=== PATIENT | female | born 1940 | race Caucasian/White ===

== ENCOUNTER 2023-12-18 13:04 | Inpatient (IN) | payer MEDICARE, OTHER, SELFPAY ==
--- NOTE | ~2023-12-18 | CT_ITS ---
EXAMINATION: CT PELVIS WITHOUT CONTRAST CLINICAL INFORMATION: Status post fall. Left hip pain. COMPARISON: Pelvis and left hip x-rays of 12/18/2023 TECHNIQUE: Helical scanning was performed with submillimeter collimation through the pelvis. Sagittal and coronal multiplanar 2-D reconstructions were obtained. This CT examination was performed using dose optimization techniques as appropriate, variously including the following: *Automated exposure control *Adjustment of mA and/or kV according to patient size (this includes techniques or standardized protocols for targeted exams where dose is matched to indication/reason for exam; i.e. extremities or head) *Use of iterative reconstruction technique DLP: 376 mGy-cm FINDINGS: PELVIS: Urinary bladder is moderately distended. There is no evidence of radiopaque calculi, wall thickening or obvious soft tissue mass. Probable small diverticulum from the right posterior lateral wall of the urinary bladder. Small cystocele is suspected. Small rectocele is suspected. Moderate stool burden in the colon. Visualized bowel loops demonstrate no evidence of wall thickening or peripheral fat stranding. No adnexal mass. Uterus is not seen, likely surgically absent. Recommend correlation with surgical history. No evidence of pathologically enlarged lymph nodes. No significant abdominal wall hernia. OSSEOUS STRUCTURES: There is significant diffuse osteopenia which somewhat limits evaluation. Nondisplaced fracture of the left inferior pubic ramus is noted. Minimal cortical step-off along the superior cortex of the left superior pubic ramus in the vicinity of pubic symphysis is noted. No definite additional acute fractures are noted in the pelvis and visualized bilateral proximal femurs. There is mild to moderate compression of L5 body, indeterminate age, probably chronic. Lower lumbar spondylosis is seen. No definite soft tissue hematoma is seen CT/CT pelvis wo IV con IMPRESSION: 1. Nondisplaced fracture of the left inferior pubic ramus. Minimal cortical step-off along the superior cortex of the left superior pubic ramus in the vicinity of pubic symphysis. No definite additional fractures are noted in the pelvis and visualized bilateral proximal femurs. 2. Mild to moderate compression of L5 body, indeterminate age, probably chronic. 3. Moderate urinary bladder distention. Small cystocele and rectocele are suspected. Recommend clinical correlation.
--- NOTE | ~2023-12-18 | CT_ITS ---
EXAMINATION: CT HEAD WITHOUT CONTRAST CLINICAL INFORMATION: Fall COMPARISON: None TECHNIQUE: Contiguous axial imaging was performed from the skull base to vertex without intravenous administration of contrast. This CT examination was performed using dose optimization techniques as appropriate, variously including the following: *Automated exposure control *Adjustment of mA and/or kV according to patient size (this includes techniques or standardized protocols for targeted exams where dose is matched to indication/reason for exam; i.e. extremities or head) *Use of iterative reconstruction technique DLP: 848 mGy-cm FINDINGS: There is no evidence of acute intracranial hemorrhage or territorial infarction. Chronic white matter small vessel ischemic changes. Cerebral atrophy with commensurate ventricular changes. No abnormal mass effect or midline shift is seen. [place] to white matter differentiation is well preserved. No extra-axial fluid collections are identified. The ventricles are normal in size. There is no abnormal attenuation within the brain parenchyma. The osseous structures and soft tissues are normal. The mastoid air cells and visualized portions of the paranasal sinuses are well aerated. CT/CT cervical spine wo IV con IMPRESSION: 1. No acute intracranial pathology. 2. Chronic white matter small vessel ischemic changes. EXAMINATION: Noncontrast CT scan of the cervical spine. INDICATION: Fall COMPARISON: None. TECHNIQUE: Helical, multidetector axial images were obtained from the occiput to the upper thorax. Coronal and sagittal reformats of the cervical spine were provided for interpretation. DLP: 848 mGy-cm FINDINGS: No acute fractures or dislocations of the cervical spine are seen. Moderate to severe multilevel degenerative changes. Anatomic alignment and positioning of the vertebral bodies and posterior elements is noted. The atlantoaxial joint and craniovertebral articulations are normal without evidence of subluxation. There is no prevertebral soft tissue swelling. The thyroid gland and visualized portions of the lung apices and mediastinum are unremarkable. IMPRESSION: 1. No acute visible fracture or dislocation. 2. Moderate to severe multilevel degenerative changes.
--- NOTE | ~2023-12-18 | CT_ITS ---
EXAMINATION: CT ANGIOGRAM OF THE CHEST WITH AND WITHOUT CONTRAST (CT PULMONARY ANGIOGRAM FOR PE) CLINICAL INFORMATION: Reason for Exam palpitations, syncope, elevated ddimer COMPARISON: None available. TECHNIQUE: Prior to contrast administration, noncontrast localization images were obtained. Subsequently, multidetector volumetric imaging was performed from the thoracic inlet to below the diaphragms following the administration of 65 mL Omnipaque 350 intravenous contrast. No contrast reaction reported Sagittal, coronal, and MIP oblique sagittal reformatted images were obtained on the CT workstation, uploaded to PACS, and reviewed. This CT examination was performed using dose optimization techniques as appropriate, variously including the following: *Automated exposure control *Adjustment of mA and/or kV according to patient size (this includes techniques or standardized protocols for targeted exams where dose is matched to indication/reason for exam; i.e. extremities or head) *Use of iterative reconstruction technique Total exam dose-length product 220 mGy-cm FINDINGS: QUALITY OF STUDY/CONTRAST BOLUS: Satisfactory. PULMONARY ARTERIES: No pulmonary emboli. THORACIC AORTA: No aneurysm. LUNG: Streaky bibasilar opacities favor atelectasis. PLEURA: No pleural effusion or pneumothorax. MEDIASTINUM: Thyroid gland appears diffusely prominent. There are subcentimeter mediastinal lymph nodes within the range of normal variation. Cardiac size is within normal limits; no pericardial effusion. CORONARY ARTERY CALCIFICATION: No significant calcification is identified. CHEST WALL/AXILLA: No axillary or internal mammary lymphadenopathy. OSSEOUS STRUCTURES: Degenerative changes are noted in the spine. UPPER ABDOMEN: There is a 3 mm calculus in the upper right kidney. No reflux of contrast into the hepatic veins to suggest elevated right heart pressures. CT/CT angio chest PE protocol IMPRESSION: 1. No pulmonary embolus identified. 2. Streaky bibasilar opacities favor atelectasis. 3. Right renal calculus measuring 3 mm. VTE: negative.
--- NOTE | ~2023-12-18 | XR_ITS ---
EXAMINATION: XR HIP, LEFT CLINICAL INFORMATION: Status post fall. Left hip pain. COMPARISON: None available. TECHNIQUE: AP view of the pelvis as well as AP and frog-lateral views of the left hip. FINDINGS: Femoral heads are well-seated in their respective acetabula. Hip joint spaces are preserved. Minimal cortical step-off is noted along the superior cortex of the left superior pubic ramus in the vicinity of the pubic symphysis, possibility of a small nondisplaced fracture here cannot be excluded. Otherwise there is no evidence of acute fracture or dislocation in the pelvis and left hip. Lower cervical spondylosis. Osteopenia of the spine. Compression deformity of the L5 body is suspected on the AP view. Small calcification in the left pelvis probably representing a phlebolith. No suspicious lytic or blastic osseous lesions are seen. XR/XR hip LT w PEL1V IMPRESSION: Minimal cortical step-off and along the superior cortex of the left superior pubic ramus in the vicinity of the pubic symphysis is nonspecific, possibility of small fracture here cannot be excluded. Otherwise there is no evidence of acute fracture or dislocation in the pelvis and left hip. Compression deformity of L5 body is suspected. Lower lumbar spondylosis.
[2023-12-18 13:11] VITALS: BP 158/75; BP 180/82; PULSE 70; PULSE 71; RESP 18; TEMP 36.3; O2SAT 97; O2SAT 99; BMI 29.4
--- NOTE | 2023-12-18 13:44 | ECG_ITS ---
Test Reason : FALL Blood Pressure : / mmHG Vent. Rate : 072 BPM Atrial Rate : 072 BPM P-R Int : 176 ms QRS Dur : 090 ms QT Int : 378 ms P-R-T Axes : 069 -02 023 degrees QTc Int : 413 ms Normal sinus rhythm cannot exclude old inferior infarct, but could be normal variant Abnormal ECG No previous ECGs available Referred By: Jessica Byrne Electronically Signed By:MITCH SALCIDO
--- NOTE | 2023-12-18 14:14 | ED.FALL ---
HPI - Fall General Chief Complaint: Fall Stated Complaint: FELL DOWN 2 STEPS Time Seen by Provider: 12/18/23 13:27 Source: patient Mode of arrival: EMS History of Present Illness HPI Narrative: 83-year-old female states that she fell down 2 stairs, struck the back of her head and complains of proximal medial thigh pain. She denies any loss of consciousness and is not on blood thinners. Related Data Allergies Allergy/AdvReac Type Severity Reaction Status Date / Time Unable to Assess Allergy Verified 12/18/23 13:44 Review of Systems Review of Systems: Pertinent positives and negatives as stated in the [facility] Past Medical History Source: nursing notes reviewed Social History Social History Advance Directives: Yes Advance Directives Information Provided: No Advance Directives on File: No Physical Exam Vital Signs: Vital Signs: Last Vital Signs Temp 97.3 F 12/18/23 13:11 Pulse 71 12/18/23 13:11 Resp 18 12/18/23 13:11 BP 158/75 H 12/18/23 13:11 Pulse Ox 97 12/18/23 13:11 O2 Del Method Room Air 12/18/23 13:11 BMI result Body Mass Index 29.4 VITAL SIGNS: Reviewed. GENERAL: Well developed, well nourished, in no acute distress. HEAD: Normocephalic/small 1 cm contusion noted to occiput EYES: PERRLA, EOMI EARS: Ext canals without abnormality NOSE: Nares patent bilateral OROPHARYNX: no oral lesions noted, posterior pharynx clear NECK: C-collar in place without midline cervical spine tenderness to palpation or step-offs noted LUNGS: Normal breath sounds. No adventitious sounds or accessory muscle use. SpO2<97>; CHEST WALL: There are no deformities or crepitus or tenderness to palpation CARDIOVASCULAR: Regular rate and rhythm without noted murmurs ABDOMEN: Soft, non-tender, non-distended with bowel sounds. PELVIS: Stable, tenderness noted at the medial aspect of the proximal left thigh MUSCULOSKELETAL: No tenderness, deformities, or effusions noted on gross inspection. EXTREMITIES: No cyanosis, clubbing or edema. SKIN: Inspection of the skin reveals no rashes NEUROLOGIC: Alert and oriented x 4. Strength and sensation to light touch were grossly intact x 4. Medical Decision Making Medical Decision Making [facility] Narrative: 1344: 83-year-old female with history and clinical presentation mechanical fall, suspect that patient may have a left hip fracture or possible rami fracture and will evaluate for any head/cervical spine pathology. I reviewed all investigations and hematologic indices demonstrate a leukocytosis with left shift but no anemia or thrombocytopenia. Chemistry indices negative for JEROME or electrolyte/liver enzyme derangements. CT of the head negative for intracranial bleeding or mass effect and cervical spine negative for fracture or subluxation. Left hip x-ray demonstrates cortical disruption of the left superior pubic rami otherwise, no fracture or dislocation. I suspect that there may be a subtle fracture to the left femoral neck and will proceed with CT pelvis to better characterize. Leukocytosis may be not infectious stress reaction but will pursue Rice catheter placement with urine specimen. C-collar was cleared. Signed out to DR Boggs - f/u CT pelvis and UA Differential Diagnosis Differential Diagnoses: The differential diagnosis associated with the presentation includes Please see the discussion above Admission/Observation Consideration of admission/observation: Escalation of care including admission/observation considered Please see the discussion above Lab Data [facility] Lab Attestation statement: I reviewed the patient's lab results. Please see the discussion above 12/18/23 14:41 12/18/23 14:41 Labs: Lab Results 12/18/23 Range/Units 14:41 WBC 16.0 H (4.8-10.8) X10*3/uL RBC 3.95 L (4.20-5.50) X10*6/uL Hgb 12.3 (12.0-16.0) g/dl Hct 36.9 L (37.0-47.0) % MCV 93.4 (80.0-98.0) fL MCH 31.1 (27.0-33.0) pg MCHC 33.3 (31.0-35.0) g/dl RDW 12.0 (11.0-16.0) % Plt Count 213 (160-400) X10*3/uL MPV 9.5 (9.4-12.3) fL Immature Gran % (Auto) 0.5 H (0.0-0.4) % Neut % (Auto) 88.2 H (45-73) % Lymph % (Auto) 5.6 L (20-40) % [place] % (Auto) 5.2 (2-11) % Eos % (Auto) 0.2 (0-4) % Baso % (Auto) 0.3 (0-2) % Lymph # (Auto) 0.9 L (1.2-4.9) X10*3/uL [place] # (Auto) 0.8 (0.1-1.2) X10*3/uL Eos # (Auto) 0.0 (0.0-0.4) X10*3/uL Baso # (Auto) 0.1 (0.0-0.2) X10*3/uL Abs Immat Gran (auto) 0.08 H (0.00-0.03) X10*3/uL Absolute Neuts (auto) 14.1 H (2.0-8.3) x10*3/uL Absolute Nucleated RBC 0.000 (0.0-0.012) X10*3/uL Nucleated RBC % (auto) 0.0 (0.0-0.2) /100WBC Sodium 141 (135-145) mmol/L Potassium 4.1 (3.3-5.1) mmol/L Chloride 107 (96-108) mmol/L Carbon Dioxide 24 (22-29) mmol/L Anion Gap 14 (12-20) BUN 18 H (9-16) mg/dL Creatinine 0.94 (0.5-1.4) mg/dL Estim Creat Clear Calc 42.4 Estimated GFR 57 Random Glucose 100 (60-115) mg/dL Calcium 9.3 (8.4-10.2) mg/dL Total Bilirubin 0.4 (0.0-1.0) mg/dL AST 26 (5-31) U/L ALT 20 (0-31) U/L Alkaline Phosphatase 60 (39-117) U/L Total Protein 7.2 (6.5-8.0) g/dL Albumin 3.8 (3.5-5.0) g/dL Independent Interpretation I performed an independent interpretation of an: EKG Interpretation: Normal sinus rhythm, HR-72, no STEMI, OK/QRS/QTC is within normal limits. Radiology Impression Discussion of test interpretation with radiology: I have reviewed the radiologist's reading. Radiologist Impression: Please see the discussion above Critical Care Time Critical Care Time Critical Care Time: Yes Total Critical Care Time: 45 Attestation: I personally attest to this time spent taking care of the patient. Discharge Plan Discharge Clinical Impression: Fall Patient Disposition: Still a Patient
[2023-12-18 14:45] LABS: MANUAL DIFF FLAG NO
[2023-12-18 14:53] LABS: Basophils Absolute Auto 0.1 X10*3/uL (0.0-0.2); Basophils Percent Auto 0.3 % (0-2); Eosinophils Percent Auto 0.2 % (0-4); Hematocrit 36.9 % (37.0-47.0); Hemoglobin 12.3 g/dl (12.0-16.0); Imm Gran Abs Auto 0.08 X10*3/uL (0.00-0.03); Imm Gran Pct Auto 0.5 % (0.0-0.4); Lymphocytes Absolute Auto 0.9 X10*3/uL (1.2-4.9); Lymphocytes Percent Auto 5.6 % (20-40); Mean Corpuscular HGB Conc 33.3 g/dl (31.0-35.0); Mean Corpuscular Hemoglobin 31.1 pg (27.0-33.0); Mean Corpuscular Volume 93.4 fL (80.0-98.0); Mean Platelet Volume 9.5 fL (9.4-12.3); Monocytes Absolute Auto 0.8 X10*3/uL (0.1-1.2); Monocytes Percent Auto 5.2 % (2-11); Neutrophils Absolute Auto 14.1 x10*3/uL (2.0-8.3); Neutrophils Percent Auto 88.2 % (45-73); Platelet Count 213 X10*3/uL (160-400); Red Blood Count 3.95 X10*6/uL (4.20-5.50)
[2023-12-18 14:59] LABS: Alanine Aminotransferase 20 U/L (0-31); Albumin Level 3.8 g/dL (3.5-5.0); Alkaline Phosphatase 60 U/L (39-117); Anion Gap 14 (12-20); Aspartate Amino Transferase 26 U/L (5-31); Bilirubin Total 0.4 mg/dL (0.0-1.0); Blood Urea Nitrogen 18 mg/dL (9-16); Calcium 9.3 mg/dL (8.4-10.2); Carbon Dioxide 24 mmol/L (22-29); Chloride 107 mmol/L (96-108); Creatinine Clr Calc Pharmacy 42.4; Estimated Glomerular Filt Rate 57; Glucose Random 100 mg/dL (60-115); Potassium 4.1 mmol/L (3.3-5.1); Sodium 141 mmol/L (135-145); Total Protein 7.2 g/dL (6.5-8.0)
[2023-12-18 18:49] VITALS: BP 121/79; PULSE 90; PULSE 92; RESP 16; O2SAT 95
[2023-12-18 19:48] LABS: Appearance Urine Clear; Color Urine Yellow; Glucose Urine UA Negative (Negative); Leukocyte Esterase Urine Negative (Negative); Nitrite Urine Negative (Negative); PH 7.5 (5.0-9.0); Urine Blood Negative (Negative); Urine Ketones Trace mg/dL (Negative); Urine Protein Negative (Neg-Trace)
[2023-12-18 19:53] LABS: INTERNATIONAL NORM RATIO 1.1 (0.9-1.1); Prothrombin Time 12.9 SEC (11.1-13.3)
[2023-12-18 19:55] LABS: Partial Thromboplastin Time 29.9 SEC (26.0-36.8)
[2023-12-18 20:05] LABS: Troponin-I High Sensitivity 5.8 ng/L (<3.5-17.0)
--- NOTE | 2023-12-18 20:20 | P.HPHOSP_ITS ---
History of Present Illness Date of Service: 12/18/23 <SAW Bryant - Last Filed: 12/18/23 21:00> Attending physician on admission: Bartolome Miguel <SAW Bryant - Last Filed: 12/18/23 21:00> Chief Complaint: syncope/collapse <SAW Bryant - Last Filed: 12/18/23 21:00> 83-year-old female with history of hypothyroidism who lives at home by herself independent at baseline presented to the ED via EMS due to an unwitnessed syncopal episode. She states that she was going up the stairs and experienced a ?blackout? falling backwards. She is unsure if she lost consciousness but does not feel she hit her head. She was unable to get up and was experiencing significant pain in the left hip area. Denies history of similar episodes. Does tell me she has been experiencing intermittent palpitations and non radiating left sided chest discomfort for several months. Episodes lasting about 5 minutes at rest. No chest pressure, sob, stern, lightheadedness. She has also has urinary urgency x 2 months but no dysuria, hematuria, abd pain, n/v, flank pain. No fevers, chills, sore throat, cough. Has chronic sinus pressure/PND. No recent sick contacts. has been feeling fatigued x several days. On arrival, VSS. Leukocytosis 16.0. Renal function and electrolyte levels normal. Initial troponin 5.8. Urinalysis unremarkable. Head CT negative for any acute intracranial abnormality. Cervical spine CT negative for any acute osseous abnormality but shows degenerative changes. CT of the left pelvis shows nondisplaced fracture of the left inferior pubic ramus with minimal cortical step-off along the superior cortex of the left superior pubic ramus in the vicinity of the pubic symphysis as well as [id number] compression of the L5 body of indeterminate age but likely chronic. EKG shows normal sinus rhythm, rate 72, no ST/T-wave abnormality. <SAW Bryant - Last Filed: 12/18/23 21:00> Review of Systems 2 Review of Systems: General: No fevers, malaise, unintentional weight loss HEENT: No blurred vision, diplopia. No sore throat, nasal congestion, rhinorrhea, sinus pain, ear pain Cardiovascular: No chest pain, palpitations, or leg edema Respiratory: No shortness of breath, wheezing, cough GI: No abdominal pain, nausea, vomiting, diarrhea, constipation, melena, hematochezia : +urinary urgency/frequency. No dysuria, hematuria, decreased urinary output MSK: No myalgia, back pain. +left hip pain Neuro: No headaches, paresthesias. +LLE weakness Skin: No rashes or lesions <SAW Bryant - Last Filed: 12/18/23 21:00> [facility] Medical History: Medical History Hypothyroidism <SAW Bryant - Last Filed: 12/18/23 21:00> Social History: Social History Smoked in Last 30 Days: No Use of substances other than those prescribed or required for medical reasons: No Advance Directives: Yes Advance Directives Information Provided: No Advance Directives on File: No <SAW Bryant - Last Filed: 12/18/23 21:00> Meds Allergies/Adverse reactions: Allergies Allergy/AdvReac Type Severity Reaction Status Date / Time clindamycin Allergy Unknown Verified 12/18/23 18:54 levofloxacin Allergy Unknown Verified 12/18/23 18:54 oxybutynin Allergy Unknown Verified 12/18/23 18:54 sulfamethoxazole Allergy Unknown Verified 12/18/23 18:54 <SAW Bryant - Last Filed: 12/18/23 21:00> Home medications: Home Medications Medication Instructions Recorded Confirmed Last Taken Type levothyroxine 75 mcg tablet 75 mcg PO DAILY 12/18/23 12/18/23 Unknown History <SAW Bryant - Last Filed: 12/18/23 21:00> Physical Exam 2 Vital Signs and Narrative: Vital Signs: Last Vital Signs Temp 97.3 F 12/18/23 13:11 Pulse 90 12/18/23 18:49 Resp 16 12/18/23 18:49 BP 121/79 12/18/23 18:49 Pulse Ox 95 12/18/23 18:49 O2 Del Method Room Air 12/18/23 18:49 BMI result Body Mass Index 29.4 <SAW Bryant - Last Filed: 12/18/23 21:00> Constitutional - Awake and Alert, No apparent distress Eyes - PERRLA, EOMI Cardiovascular - S1S2, RRR, No edema Respiratory - Normal lung expansion, Normal respiratory effort, No respiratory distress, CTA bilaterally Gastrointestinal - NT / ND; +BS; No rebound or guarding Extremities - no calf tenderness bilaterally, no swelling Musculoskeletal - Normal inspection, legs are equal in length and lie straight. Guarding of left hip, significant ttp over left pelvis Skin - Warm/Dry Neurological - Alert & oriented x3, CN II-XII in tact, 5/5 strength BUE, RLE> Unable to lift LLE due to pain Psychological - Appropriate affect <SAW Bryant - Last Filed: 12/18/23 21:00> Results Labs CBC and Chem 7: 12/18/23 14:41 12/18/23 14:41 <SAW Bryant - Last Filed: 12/18/23 21:00> Labs: Laboratory Results - last 24 hr 12/18/23 12/18/23 14:41 19:44 MCV 93.4 MCH 31.1 MCHC 33.3 RDW 12.0 Plt Count 213 MPV 9.5 Immature Gran % (Auto) 0.5 H Neut % (Auto) 88.2 H Lymph % (Auto) 5.6 L [place] % (Auto) 5.2 Eos % (Auto) 0.2 Baso % (Auto) 0.3 Lymph # (Auto) 0.9 L [place] # (Auto) 0.8 Eos # (Auto) 0.0 Baso # (Auto) 0.1 Abs Immat Gran (auto) 0.08 H Absolute Neuts (auto) 14.1 H Absolute Nucleated RBC 0.000 Nucleated RBC % (auto) 0.0 PT 12.9 INR 1.1 APTT 29.9 Anion Gap 14 Estim Creat Clear Calc 42.4 Estimated GFR 57 Random Glucose 100 Calcium 9.3 Total Bilirubin 0.4 AST 26 ALT 20 Alkaline Phosphatase 60 Total Protein 7.2 Albumin 3.8 Urine Color Yellow Urine Appearance Clear Urine pH 7.5 Ur Specific [place] 1.010 Urine Protein Negative Urine Glucose (UA) Negative Urine Ketones Trace Urine Blood Negative Urine Nitrite Negative Ur Leukocyte Esterase Negative <SAW Bryant - Last Filed: 12/18/23 21:00> Imaging Radiologist's Impressions: Impressions Cervical Spine CT 12/18/23 14:17 IMPRESSION: 1. No acute intracranial pathology. 2. Chronic white matter small vessel ischemic changes. EXAMINATION: Noncontrast CT scan of the cervical spine. INDICATION: Fall COMPARISON: None. TECHNIQUE: Helical, multidetector axial images were obtained from the occiput to the upper thorax. Coronal and sagittal reformats of the cervical spine were provided for interpretation. DLP: 848 mGy-cm FINDINGS: No acute fractures or dislocations of the cervical spine are seen. Moderate to severe multilevel degenerative changes. Anatomic alignment and positioning of the vertebral bodies and posterior elements is noted. The atlantoaxial joint and craniovertebral articulations are normal without evidence of subluxation. There is no prevertebral soft tissue swelling. The thyroid gland and visualized portions of the lung apices and mediastinum are unremarkable. IMPRESSION: 1. No acute visible fracture or dislocation. 2. Moderate to severe multilevel degenerative changes. Head CT 12/18/23 14:17 IMPRESSION: 1. No acute intracranial pathology. 2. Chronic white matter small vessel ischemic changes. EXAMINATION: Noncontrast CT scan of the cervical spine. INDICATION: Fall COMPARISON: None. TECHNIQUE: Helical, multidetector axial images were obtained from the occiput to the upper thorax. Coronal and sagittal reformats of the cervical spine were provided for interpretation. DLP: 848 mGy-cm FINDINGS: No acute fractures or dislocations of the cervical spine are seen. Moderate to severe multilevel degenerative changes. Anatomic alignment and positioning of the vertebral bodies and posterior elements is noted. The atlantoaxial joint and craniovertebral articulations are normal without evidence of subluxation. There is no prevertebral soft tissue swelling. The thyroid gland and visualized portions of the lung apices and mediastinum are unremarkable. IMPRESSION: 1. No acute visible fracture or dislocation. 2. Moderate to severe multilevel degenerative changes. Hip/Pelvis X-Ray 12/18/23 14:17 IMPRESSION: Minimal cortical step-off and along the superior cortex of the left superior pubic ramus in the vicinity of the pubic symphysis is nonspecific, possibility of small fracture here cannot be excluded. Otherwise there is no evidence of acute fracture or dislocation in the pelvis and left hip. Compression deformity of L5 body is suspected. Lower lumbar spondylosis. Pelvis CT 12/18/23 17:12 IMPRESSION: 1. Nondisplaced fracture of the left inferior pubic ramus. Minimal cortical step-off along the superior cortex of the left superior pubic ramus in the vicinity of pubic symphysis. No definite additional fractures are noted in the pelvis and visualized bilateral proximal femurs. 2. Mild to moderate compression of L5 body, indeterminate age, probably chronic. 3. Moderate urinary bladder distention. Small cystocele and rectocele are suspected. Recommend clinical correlation. <SAW Bryant - Last Filed: 12/18/23 21:00> Assessment and Plan (1) Fracture of inferior pubic ramus: Status: Acute <SAW Bryant - Last Filed: 12/18/23 21:00> (2) Syncope: Status: Acute <SAW Bryant - Last Filed: 12/18/23 21:00> (3) Fall: Status: Acute <SAW Bryant - Last Filed: 12/18/23 21:00> 83-year-old female with history of hypothyroidism admitted for syncope and left pubic ramus fracture #Syncope and collapse- suspect cardiac in etiology -has been experiencing palpitations and chest discomfort intermittently xseveral months -EKG without evidence of dysrrhythmia or ischemia -Head CT without acute intracranial abnormality -no source of infection evident, though COVID/flu swabs pending -intitial trop 5, repeat pending -ddimer pending, tsh pending -echo -monitor on telemetry #Fall with L pubic rami fracture -ortho consult -pain management prn -pt eval #hypothryoidism -synthroid dvt prophylaxis- heparin full code pt requires inpt stay at least 2 midnights due to syncope and collapse of unclear etiology requiring close cardiac monitoring, further investigation, as well as probable placement to STR due to pubic rami fracture <SAW Bryant - Last Filed: 12/18/23 21:00> 83-year-old female with history of hypothyroidism admitted for syncope and left pubic ramus fracture #Syncope and collapse- suspect cardiac in etiology -has been experiencing palpitations and chest discomfort intermittently xseveral months -EKG without evidence of dysrrhythmia or ischemia -Head CT without acute intracranial abnormality -no source of infection evident, though COVID/flu swabs pending -intitial trop 5, repeat pending -ddimer pending, tsh pending -echo, cardiology consult -monitor on telemetry #Fall with L pubic rami fracture -ortho consult -pain management prn -pt eval #hypothryoidism -synthroid dvt prophylaxis- heparin full code pt requires inpt stay at least 2 midnights due to syncope and collapse of unclear etiology requiring close cardiac monitoring, further investigation, as well as probable placement to STR due to pubic rami fracture <Bartolome Miguel MD - Last Filed: 12/18/23 21:13> Quality Stroke Does the patient have a stroke diagnosis?: No <SAW Bryant - Last Filed: 12/18/23 21:00> VTE Prior VTE?: No <SAW Bryant - Last Filed: 12/18/23 21:00> VTE Risk Level:: Medical - moderate - high <SAW Bryant - Last Filed: 12/18/23 21:00> VTE Device Contraindication: Treatment Not Indicated <SAW Bryant - Last Filed: 12/18/23 21:00> VTE Drug Contraindication: N/A - Med Ordered <SAW Bryant - Last Filed: 12/18/23 21:00>
[2023-12-18 21:33] LABS: TSH reflex Free T4 0.73 uIU/mL (0.32-4.0)
[2023-12-18 21:37] LABS: D Dimer High Sensitivity 14465 NG/ML
--- NOTE | 2023-12-18 21:38 | PC.NURSE ---
this rn attempted to medicated pt with subcut heparin. pt refused medication. this rn documented according to mar
[2023-12-18] MEDS: iohexoL 350 MG/ML 100 ML INFUS..BTL IV (22:49)
[2023-12-18] MEDS: 0.9 % Sodium Chloride Flush 3 ML SYRINGE IVFLUSH (22:52)
[2023-12-18] MEDS: 0.9 % Sodium Chloride 500 ML IV (22:52)
[2023-12-18 22:56] VITALS: BP 140/71; PULSE 72; RESP 14; TEMP 37.4; O2SAT 95
[2023-12-18 23:23] LABS: IDNOW Serial# 16C4AD1C
[2023-12-18 23:24] LABS: COVID-19 Test Negative (Negative); IDNOW Serial# 55D5AD1C; Influenza A Negative (Negative); Influenza B2 Negative (Negative)
[2023-12-19] VITALS (10 sets, daily range): BP systolic 112–146; BP diastolic 56–74; PULSE 67–95; RESP 18–21; TEMP 36.2–37.3; O2SAT 93–98; BMI 28.3
[2023-12-19] MEDS: Morphine Sulfate 2 MG/ML CARTRIDGE IVPUSH (01:19)
[2023-12-19 05:07] LABS: MANUAL DIFF FLAG NO
[2023-12-19 05:08] LABS: Basophils Percent Auto 0.4 % (0-2); Eosinophils Absolute Auto 0.1 X10*3/uL (0.0-0.4); Eosinophils Percent Auto 0.7 % (0-4); Hematocrit 35.3 % (37.0-47.0); Hemoglobin 11.8 g/dl (12.0-16.0); Imm Gran Abs Auto 0.03 X10*3/uL (0.00-0.03); Imm Gran Pct Auto 0.3 % (0.0-0.4); Lymphocytes Absolute Auto 1.8 X10*3/uL (1.2-4.9); Lymphocytes Percent Auto 15.7 % (20-40); Mean Corpuscular HGB Conc 33.4 g/dl (31.0-35.0); Mean Corpuscular Volume 92.7 fL (80.0-98.0); Mean Platelet Volume 9.8 fL (9.4-12.3); Monocytes Percent Auto 8.5 % (2-11); Neutrophils Absolute Auto 8.4 x10*3/uL (2.0-8.3); Neutrophils Percent Auto 74.4 % (45-73); Platelet Count 192 X10*3/uL (160-400); Red Blood Count 3.81 X10*6/uL (4.20-5.50); Red Cell Distribution Width 12.3 % (11.0-16.0); White Blood Count 11.3 X10*3/uL (4.8-10.8)
[2023-12-19 05:21] LABS: Anion Gap 14 (12-20); Blood Urea Nitrogen 13 mg/dL (9-16); Calcium 8.8 mg/dL (8.4-10.2); Carbon Dioxide 21 mmol/L (22-29); Chloride 105 mmol/L (96-108); Creatinine Clr Calc Pharmacy 40.3; Estimated Glomerular Filt Rate 53; Glucose Random 125 mg/dL (60-115); Potassium 3.4 mmol/L (3.3-5.1); Sodium 137 mmol/L (135-145)
--- NOTE | 2023-12-19 05:25 | PC.NURSE ---
this rn assisted pt with repositioning upper body pt declined boost in bed.states this is too painful has been boosting self
--- NOTE | 2023-12-19 07:00 | CA_ITS ---
Transthoracic Echocardiogram Patient (Last, First, Middle): Flower Montoya C Gender: Female Date of : 1940 Age: 83 Procedure Date: 12/19/2023 Procedure Type: Transthoracic Echocardiogram Location: [facility] [place] Height: 157.48 cm Weight: 74.84 kg BSA: 1.76 m2 Heart Rate: 67 bpm BP: 134 / 72 mmHg Data Report Analyst: SB Referring MD: Erika SPRING Symptoms: syncope Study Quality: Adequate ECG Rhythm: Sinus Conclusions: - The left ventricular systolic function is normal. The calculated ejection fraction is 62% by biplane method. - No obvious valvular pathology seen on this study. Findings Procedure Information Contrast agent, definity, is being given per protocol without apparent complications. Left Ventricle Normal left ventricular cavity size. There is normal left ventricular wall thickness. The left ventricular systolic function is normal. The calculated ejection fraction is 62% by biplane method. There is no evidence of regional wall motion abnormalities. Diastolic function is normal for age. Right Ventricle Normal right ventricular cavity size and systolic function. Atria Both atria are normal in size. Aortic Valve There is a normal trileaflet aortic valve. There is mild calcification of the aortic valve. There is no aortic valve stenosis. There is no aortic valve regurgitation. Mitral Valve The mitral valve appears normal. There is no mitral valve regurgitation. There is no mitral valve stenosis. Pulmonic Valve The pulmonic valve is likely normal. Tricuspid Valve Normal tricuspid valve structure. There is mild tricuspid valve regurgitation. There is no evidence of pulmonary hypertension. Great Vessels The asc aorta is normal in size. Venous The inferior vena cava is normal in size and collapses greater than 50% with inspiration. Pericardium/Pleural There is no evidence of pericardial effusion. Prior Study Comparison No prior study available for comparison. Recommendations, Care & Conclusions No obvious valvular pathology seen on this study. Measurements 2D Linear Measurements IVSd: 0.96 0.6-0.9/0.6-1.0 cm LVIDd: 4.54 3.9-5.3/4.2-5.9 cm LVIDd Index: 2.58 2.4-3.2/2.2-3.1 cm/m2 LVIDs: 2.90 2.0-3.6 cm LVPWd: 0.67 0.7-1.1 cm LA Diam: 3.30 2.7-3.8/3.0-4.0 cm LAIDs Index: 1.88 1.5-2.3 cm/m2 LV Mass: 146.72 67-162/88-224 g LV Mass Index: 83.37 43-95/49-115 g/m2 LVOT Diam: 2.00 3.0+(-)1.3 cm 2D Systolic Function EF 4C: 58.80 >55% EF 2C: 66.90 >55% EF BiP: 61.90 >55% Mitral Valve MV Pk E: 0.86 MV PK A: 0.99 MV Decel Time: 173.00 E/A: 0.90 E'Lateral: 6.85 E'Medial: 5.98 E/E' Med: 14.40 E/E' Lat: 12.60 PHT: 51.00 MVA PHT: 4.31 Decel Baxter: 4.99 Aortic Valve AoV Pk Casey: 1.54 AoV Mn Casey: 1.08 AoV VTI: 0.31 AoV Pk Grad: 9.00 Aov Mn Grad: 5.00 TADEO Cont.VTI: 1.99 LVOT LVOT Pk Casey: 0.98 LVOT Mn Casey: 0.68 LVOT VTI: 0.20 LVOT Pk Grad: 4.00 LVOT Mn Grad: 2.00 LVOT Diam: 2.00 LVOT Area: 3.14 Diastolic Function MV Pk E: 0.86 MV Pk A: 0.99 E/A: 0.90 E'Medial: 5.98 E/E' Med: 14.40 E' Laterial: 6.85 E/E' Lat: 12.60 Right Ventricle TAPSE (mm): 22.80 TVS' Casey: 12.30 Tricuspid Valve TR Pk Casey: 2.80 TR Pk Grad: 31.00 RA Press: 3.00 RVSP: 34.00 Great Vessels Aorta Sinus of Valsalva: 2.70 2.0-3.5 cm Ao Asc: 3.50 2.1-3.4 cm Pulmonary Valve PV Pk Casey: 0.92 Peak PV Grad: 3.00 Updated in Other Vendor System with Status of Final Srinivas Presley MD electronically signed on 12/19/2023 12:48:13 PM with status of Final
[2023-12-19] MEDS: Levothyroxine Sodium 75 MCG TABLET PO (09:08)
[2023-12-19] MEDS: Acetaminophen 325 MG TABLET 650 MG PO ×2 (09:08→15:03)
[2023-12-19] MEDS: 0.9 % Sodium Chloride Flush 3 ML SYRINGE IVFLUSH ×3 (09:08→21:10)
[2023-12-19] MEDS: Heparin Sodium,Porcine 5,000 UNIT/ML VIAL 5000 UNIT SUBCUT ×2 (09:10→21:10)
--- NOTE | 2023-12-19 09:39 | PHA.MEDREC ---
Pharmacy Consult ? Medication Reconciliation Pharmacy has completed the medication reconciliation.Confirmed medications with patient.
--- NOTE | 2023-12-19 09:53 | P.CONCA_ITS ---
History of Present Illness History of Present Illness Date of Service: 12/19/23 Chief complaint: syncope,pelvis fracture Narrative: This is a cardiology consultation regarding question of syncope. Patient states that she was walking down stairs to go to the kitchen and in that context, she thinks she may have missed a couple of steps but not clear. She felt as though she was blacking out and then fell down. Again she can not describe exactly how she fell, in which direction extra. She was then admitted for further evaluation. Patient denies any chest pain. She states she has had palpitations off and on for a long time but not really clear as to what that is. However denies any history of coronary disease or myocardial infarction or cardiomyopathy. Review of Systems 2 Review of Systems: Yes all other systems are reviewed and are negative Constitutional: Constitutional: Reports as per HPI and Reports no additional constitutional complaints Eyes: Eyes: Reports as per HPI and Denies no additional eye complaints ENT: Denies system reviewed and no additional complaints, except as documented and Reports as per HPI Cardiovascular: Cardiovascular: Reports as per HPI, Reports no additional cardiovascular complaints, Denies acrocyanosis, Denies cool extremities, Denies chest pain, Denies leg edema, Reports lightheadedness, Reports palpitations and Denies dyspnea Respiratory: Respiratory: Reports as per HPI, Denies no additional respiratory complaints and Denies dyspnea Gastrointestinal: Gastrointestinal: Reports as per HPI and Denies no additional gastrointestinal complaints Genitourinary: Genitourinary: Reports as per HPI Musculoskeletal: Musculoskeletal: Reports no additional musculoskeletal complaints and Reports as per HPI Integumentary/Breasts: Skin/Breast: Reports system reviewed and no additional complaints, except as docu Neurologic: Reports system reviewed and no additional complaints, except as documented and Reports as per HPI Psychiatric: Psychiatric: Reports no additional psychiatric complaints and Reports as per HPI Endocrine: Endocrine: Reports no additional endocrine complaints, Reports as per HPI and Reports palpitations Hematologic/Lymphatic: Hematologic/Lymphatic: Reports no additional hematologic/lymphatic complaints and Reports as per HPI Allergic/Immunologic: Allergic/Immunologic: Reports no additional allergic/immunologic complaints and Reports as per HPI PMF Past Medical History Medical History Hypothyroidism Family History Family History Unknown No problems noted. Pertinent family history: Patient denies any major cardiovascular issues in the family. Social History Social History Household Members: Unknown / Unable to assess Housing: House Do you presently have visiting nurse or other home services: No Patient Tobacco Use Status: Never used Tobacco Advance Directives Date on File: 12/19/23 Meds Allergies Allergy/AdvReac Type Severity Reaction Status Date / Time clindamycin Allergy Unknown Verified 12/18/23 18:54 levofloxacin Allergy Unknown Verified 12/18/23 18:54 oxybutynin Allergy Unknown Verified 12/18/23 18:54 sulfamethoxazole Allergy Unknown Verified 12/18/23 18:54 Active Medications: Current Medications Acetaminophen (Acetaminophen 325 Mg Tablet) 650 mg PO Q6H PRN PRN Reason: Pain, Mild (Pain Scale 1-3) Last Admin: 12/19/23 09:08 Dose: 650 mg Heparin Sodium (Porcine) (Heparin Sodium,Porcine 5,000 Unit/Ml Vial) 5,000 unit SUBCUT Q12H [facility] Last Admin: 12/19/23 09:10 Dose: 5,000 unit Levothyroxine Sodium (Levothyroxine Sodium 75 Mcg Tablet) 75 mcg PO DAILY [facility] Last Admin: 12/19/23 09:08 Dose: 75 mcg Morphine Sulfate (Morphine Sulfate 2 Mg/Ml Cartridge) 2 mg IVPUSH Q4H PRN; Protocol PRN Reason: Pain, Severe (Pain Scale 7-10) Last Admin: 12/19/23 01:19 Dose: 2 mg Ondansetron HCl (Ondansetron Hcl 4 Mg/2 Ml Vial) 4 mg IVPUSH Q8H PRN PRN Reason: Nausea and Vomiting Oxycodone HCl (Oxycodone Hcl Immed Release 5 Mg Tablet) 5 mg PO Q6H PRN PRN Reason: Pain, Moderate(Pain Scale 4-6) Senna (Sennosides 8.6 Mg Tablet) 17.2 mg PO BEDTIME PRN PRN Reason: Constipation Sodium Chloride (0.9 % Sodium Chloride Flush 3 Ml Syringe) 3 ml IVFLUSH QSHIFT [facility] Last Admin: 12/19/23 09:08 Dose: 3 ml Home Medications Medication Instructions Recorded Confirmed Last Taken Type levothyroxine 75 mcg tablet 75 mcg PO DAILY@0600 12/18/23 12/19/23 12/18/23 History cholecalciferol (vitamin D3) 50 50 mcg PO DAILY 12/19/23 12/19/23 12/18/23 History mcg (2,000 unit) tablet (Vitamin D3) fexofenadine 180 mg tablet 180 mg PO DAILY 12/19/23 12/19/23 12/18/23 History fluticasone propionate 50 1 spray intranasal DAILY 12/19/23 12/19/23 12/18/23 History mcg/actuation nasal spray,suspension Physical Exam 2 Vital Signs: Vital Signs: Last Vital Signs Temp 98.2 F 12/19/23 08:54 Pulse 77 12/19/23 08:54 Resp 20 12/19/23 08:54 BP 141/66 H 12/19/23 08:54 Pulse Ox 95 12/19/23 08:54 O2 Del Method Room Air 12/19/23 08:54 BMI result Body Mass Index 28.3 Const: General: comfortable and no acute distress O rientation/consciousness: patient oriented x3 HEENT: Other: Unremarkable Head: Yes normal to inspection Neck: Neck: Yes normal visual inspection Chest: Chest palpation & inspection: normal inspection of the chest Resp: Auscultation: clear to auscultation bilaterally Cardio: Palpation: normal PMI Heart sounds: S1 normal heart sound present, S2 normal heart sound present, no gallops, Murmur heart sound present systolic I/ and at the right sternal border and no rubs GI: Palpation (GI): Soft to palpation Back/Spine/Pelvis: Other: unremarkable Skin: General skin exam: no rashes or lesions noted Neuro: General: patient oriented x3 Extrem: General: Yes normal to inspection Psych: Mental Status: mental status grossly normal Objective Labs and Meds 12/19/23 04:29 12/19/23 04:29 Lab results: Laboratory Results - last 24 hr 12/18/23 12/18/23 12/18/23 14:41 19:44 20:54 WBC 16.0 H RBC 3.95 L Hgb 12.3 Hct 36.9 L MCV 93.4 MCH 31.1 MCHC 33.3 RDW 12.0 Plt Count 213 MPV 9.5 Immature Gran % (Auto) 0.5 H Neut % (Auto) 88.2 H Lymph % (Auto) 5.6 L [place] % (Auto) 5.2 Eos % (Auto) 0.2 Baso % (Auto) 0.3 Lymph # (Auto) 0.9 L [place] # (Auto) 0.8 Eos # (Auto) 0.0 Baso # (Auto) 0.1 Abs Immat Gran (auto) 0.08 H Absolute Neuts (auto) 14.1 H Absolute Nucleated RBC 0.000 Nucleated RBC % (auto) 0.0 PT 12.9 INR 1.1 APTT 29.9 D-Dimer High Sensitivty 90965 Sodium 141 Potassium 4.1 Chloride 107 Carbon Dioxide 24 Anion Gap 14 BUN 18 H Creatinine 0.94 Estim Creat Clear Calc 42.4 Estimated GFR 57 Random Glucose 100 Calcium 9.3 Total Bilirubin 0.4 AST 26 ALT 20 Alkaline Phosphatase 60 Troponin I High Sens 5.8 6.0 Total Protein 7.2 Albumin 3.8 TSH 0.73 Urine Color Yellow Urine Appearance Clear Urine pH 7.5 Ur Specific [place] 1.010 Urine Protein Negative Urine Glucose (UA) Negative Urine Ketones Trace Urine Blood Negative Urine Nitrite Negative Ur Leukocyte Esterase Negative COVID-19 ([facility]) COVID-19 Clin Com Influenza Type A (MELISSA) Influenza Type B (MELISSA) Influenza A & B Note 12/18/23 12/19/23 23:00 04:29 WBC 11.3 H RBC 3.81 L Hgb 11.8 L Hct 35.3 L MCV 92.7 MCH 31.0 MCHC 33.4 RDW 12.3 Plt Count 192 MPV 9.8 Immature Gran % (Auto) 0.3 Neut % (Auto) 74.4 H Lymph % (Auto) 15.7 L [place] % (Auto) 8.5 Eos % (Auto) 0.7 Baso % (Auto) 0.4 Lymph # (Auto) 1.8 [place] # (Auto) 1.0 Eos # (Auto) 0.1 Baso # (Auto) 0.0 Abs Immat Gran (auto) 0.03 Absolute Neuts (auto) 8.4 H Absolute Nucleated RBC 0.000 Nucleated RBC % (auto) 0.0 PT INR APTT D-Dimer High Sensitivty Sodium 137 Potassium 3.4 Chloride 105 Carbon Dioxide 21 L Anion Gap 14 BUN 13 Creatinine 0.99 Estim Creat Clear Calc 40.3 Estimated GFR 53 Random Glucose 125 H Calcium 8.8 Total Bilirubin AST ALT Alkaline Phosphatase Troponin I High Sens Total Protein Albumin TSH Urine Color Urine Appearance Urine pH Ur Specific [place] Urine Protein Urine Glucose (UA) Urine Ketones Urine Blood Urine Nitrite Ur Leukocyte Esterase COVID-19 ([facility]ARILYS) Negative COVID-19 Clin Com See Note Influenza Type A (MELISSA) Negative Influenza Type B (MELISSA) Negative Influenza A & B Note See Note ECG Interpretation: EKG with sinus rhythm at 72/Min; can not exclude old inferior infarct but could be from body habitus; normal LA and corrected QT. Imaging Radiologist's impression: Impressions Cervical Spine CT 12/18/23 14:17 IMPRESSION: 1. No acute intracranial pathology. 2. Chronic white matter small vessel ischemic changes. EXAMINATION: Noncontrast CT scan of the cervical spine. INDICATION: Fall COMPARISON: None. TECHNIQUE: Helical, multidetector axial images were obtained from the occiput to the upper thorax. Coronal and sagittal reformats of the cervical spine were provided for interpretation. DLP: 848 mGy-cm FINDINGS: No acute fractures or dislocations of the cervical spine are seen. Moderate to severe multilevel degenerative changes. Anatomic alignment and positioning of the vertebral bodies and posterior elements is noted. The atlantoaxial joint and craniovertebral articulations are normal without evidence of subluxation. There is no prevertebral soft tissue swelling. The thyroid gland and visualized portions of the lung apices and mediastinum are unremarkable. IMPRESSION: 1. No acute visible fracture or dislocation. 2. Moderate to severe multilevel degenerative changes. Head CT 12/18/23 14:17 IMPRESSION: 1. No acute intracranial pathology. 2. Chronic white matter small vessel ischemic changes. EXAMINATION: Noncontrast CT scan of the cervical spine. INDICATION: Fall COMPARISON: None. TECHNIQUE: Helical, multidetector axial images were obtained from the occiput to the upper thorax. Coronal and sagittal reformats of the cervical spine were provided for interpretation. DLP: 848 mGy-cm FINDINGS: No acute fractures or dislocations of the cervical spine are seen. Moderate to severe multilevel degenerative changes. Anatomic alignment and positioning of the vertebral bodies and posterior elements is noted. The atlantoaxial joint and craniovertebral articulations are normal without evidence of subluxation. There is no prevertebral soft tissue swelling. The thyroid gland and visualized portions of the lung apices and mediastinum are unremarkable. IMPRESSION: 1. No acute visible fracture or dislocation. 2. Moderate to severe multilevel degenerative changes. Hip/Pelvis X-Ray 12/18/23 14:17 IMPRESSION: Minimal cortical step-off and along the superior cortex of the left superior pubic ramus in the vicinity of the pubic symphysis is nonspecific, possibility of small fracture here cannot be excluded. Otherwise there is no evidence of acute fracture or dislocation in the pelvis and left hip. Compression deformity of L5 body is suspected. Lower lumbar spondylosis. Pelvis CT 12/18/23 17:12 IMPRESSION: 1. Nondisplaced fracture of the left inferior pubic ramus. Minimal cortical step-off along the superior cortex of the left superior pubic ramus in the vicinity of pubic symphysis. No definite additional fractures are noted in the pelvis and visualized bilateral proximal femurs. 2. Mild to moderate compression of L5 body, indeterminate age, probably chronic. 3. Moderate urinary bladder distention. Small cystocele and rectocele are suspected. Recommend clinical correlation. Chest CTA 12/18/23 22:51 IMPRESSION: 1. No pulmonary embolus identified. 2. Streaky bibasilar opacities favor atelectasis. 3. Right renal calculus measuring 3 mm. VTE: negative. Assessment and Plan (1) Syncope: Qualifiers: Syncope type: unspecified Qualified Code(s): R55 - Syncope and collapse Status: Acute (2) Fall: Qualifiers: Encounter type: initial encounter Qualified Code(s): W19.XXXA - Unspecified fall, initial encounter Status: Acute Plan High sensitivity troponins within range. EKG shows sinus rhythm. We can monitor on telemetry for now and check for any Nehemias arrhythmias or heart blocks. Echocardiogram can be performed for cardiac function assessment and for any significant aortic stenosis. She is just being put on telemetry. Will follow-up with you. Procedures Date of Service Date of Service: 12/19/23
--- NOTE | 2023-12-19 10:18 | P.CONOP_ITS ---
History of Present Illness HPI Consult date: 12/19/23 Chief complaint: syncope,pelvis fracture Narrative: 3-year-old female with history of hypothyroidism who lives at home by herself independent at baseline presented to the ED via EMS due to an unwitnessed syncopal episode. She states that she was going up the stairs and experienced a ?blackout? falling backwards. She is unsure if she lost consciousness but does not feel she hit her head. She was unable to get up and was experiencing significant pain in the left hip area. A CT of the pelvis as well as X-rays of the left hip and pelvis were obtained in the ED which revealed left superior and inferior pubic rami fractures. The patient was admitted to the medical service for further workout of the syncopal episode with orthopeidc consult in regards to the pelvic fractures. Review of Systems 2 Review of Systems: Yes all other systems are reviewed and are negative [facility] Past Medical History Medical History Hypothyroidism Family History Family History (Updated 12/19/23 @ 09:55 by Srinivas Presley MD) Unknown No problems noted. Social History Social History Household Members: Unknown / Unable to assess Housing: House Do you presently have visiting nurse or other home services: No Patient Tobacco Use Status: Never used Tobacco Advance Directives Date on File: 12/19/23 Meds Allergies Allergy/AdvReac Type Severity Reaction Status Date / Time clindamycin Allergy Unknown Verified 12/18/23 18:54 levofloxacin Allergy Unknown Verified 12/18/23 18:54 oxybutynin Allergy Unknown Verified 12/18/23 18:54 sulfamethoxazole Allergy Unknown Verified 12/18/23 18:54 Active Medications: Current Medications Acetaminophen (Acetaminophen 325 Mg Tablet) 650 mg PO Q6H PRN PRN Reason: Pain, Mild (Pain Scale 1-3) Last Admin: 12/19/23 09:08 Dose: 650 mg Heparin Sodium (Porcine) (Heparin Sodium,Porcine 5,000 Unit/Ml Vial) 5,000 unit SUBCUT Q12H AL Last Admin: 12/19/23 09:10 Dose: 5,000 unit Levothyroxine Sodium (Levothyroxine Sodium 75 Mcg Tablet) 75 mcg PO DAILY AL Last Admin: 12/19/23 09:08 Dose: 75 mcg Morphine Sulfate (Morphine Sulfate 2 Mg/Ml Cartridge) 2 mg IVPUSH Q4H PRN; Protocol PRN Reason: Pain, Severe (Pain Scale 7-10) Last Admin: 12/19/23 01:19 Dose: 2 mg Ondansetron HCl (Ondansetron Hcl 4 Mg/2 Ml Vial) 4 mg IVPUSH Q8H PRN PRN Reason: Nausea and Vomiting Oxycodone HCl (Oxycodone Hcl Immed Release 5 Mg Tablet) 5 mg PO Q6H PRN PRN Reason: Pain, Moderate(Pain Scale 4-6) Senna (Sennosides 8.6 Mg Tablet) 17.2 mg PO BEDTIME PRN PRN Reason: Constipation Sodium Chloride (0.9 % Sodium Chloride Flush 3 Ml Syringe) 3 ml [facility]USH [facility] Last Admin: 12/19/23 09:08 Dose: 3 ml Home Medications Medication Instructions Recorded Confirmed Last Taken Type levothyroxine 75 mcg tablet 75 mcg PO DAILY@0600 12/18/23 12/19/23 12/18/23 History cholecalciferol (vitamin D3) 50 50 mcg PO DAILY 12/19/23 12/19/23 12/18/23 History mcg (2,000 unit) tablet (Vitamin D3) fexofenadine 180 mg tablet 180 mg PO DAILY 12/19/23 12/19/23 12/18/23 History fluticasone propionate 50 1 spray intranasal DAILY 12/19/23 12/19/23 12/18/23 History mcg/actuation nasal spray,suspension Physical Exam 2 Vital Signs: Vital Signs: Last Vital Signs Temp 98.2 F 12/19/23 08:54 Pulse 77 12/19/23 08:54 Resp 20 12/19/23 08:54 BP 141/66 H 12/19/23 08:54 Pulse Ox 95 12/19/23 08:54 O2 Del Method Room Air 12/19/23 08:54 BMI result Body Mass Index 28.3 Const: General: cooperative, healthy appearing and no acute distress Resp: Effort & Inspection: normal respiratory effort and able to speak in complete sentences Cardio: Rate: regular rate Peripheral pulses: Peripheral pulses 2+ throughout GI: Palpation (GI): Soft to palpation Skin: Lesions: no lesions Rashes: no rashes Extrem: Other: left lower extremity is normal to inspection. Mild pain with him flexion and extension. No pain with log roll. Sensation is intact. Pedal pulse intact. Results Labs 12/19/23 04:29 12/19/23 04:29 Labs: Abnormal lab results 12/18/23 12/19/23 Range/Units 14:41 04:29 WBC 16.0 H 11.3 H (4.8-10.8) X10*3/uL RBC 3.95 L 3.81 L (4.20-5.50) X10*6/uL Hgb 11.8 L (12.0-16.0) g/dl Hct 36.9 L 35.3 L (37.0-47.0) % Immature Gran % (Auto) 0.5 H (0.0-0.4) % Neut % (Auto) 88.2 H 74.4 H (45-73) % Lymph % (Auto) 5.6 L 15.7 L (20-40) % Lymph # (Auto) 0.9 L (1.2-4.9) X10*3/uL Abs Immat Gran (auto) 0.08 H (0.00-0.03) X10*3/uL Absolute Neuts (auto) 14.1 H 8.4 H (2.0-8.3) x10*3/uL Carbon Dioxide 21 L (22-29) mmol/L BUN 18 H (9-16) mg/dL Random Glucose 125 H (60-115) mg/dL H & H 12/18/23 12/19/23 Range/Units 14:41 04:29 Hgb 12.3 11.8 L (12.0-16.0) g/dl Hct 36.9 L 35.3 L (37.0-47.0) % Coagulation 12/18/23 Range/Units 19:44 INR 1.1 (0.9-1.1) All other labs normal. Assessment and Plan (1) Fracture of inferior pubic ramus: Qualifiers: Encounter type: initial encounter Fracture type: closed Laterality: l eft Qualified Code(s): S32.592A - Other specified fracture of left pubis, initial encounter for closed fracture Status: Acute X-rays and CT scan reviewed with reveal left superior and inferior pubic rami fractures Protective WB LLE - TTWB with walker No surgical intervention needed at this time May f/u outpatient for further management No additional orthopedic intervention is needed at this time. (2) Fracture of superior pubic ramus: Qualifiers: Encounter type: initial encounter Fracture type: closed Laterality: l eft Qualified Code(s): S32.512A - Fracture of superior rim of left pubis, initial encounter for closed fracture Status: Acute Procedures Date of Service Date of Service: 12/19/23
--- NOTE | 2023-12-19 11:08 | MHC.CM.PN ---
IMM 12/19/23, EMR REVIEWED, PT ADMITTED W/SYNCOPE AND PELVIS FX'S, CM MET W/PT WHO REPORTS SHE LIVES ALONE, IS FULLY INDEPENDENT, DENIES USE OF DME/HOME SERVICES, PT REPORTS SHE SPOKE W/HER DTR HUBER WHO WOULD PREFER PT TO GO TO [facility], REFERRAL PLACED AND OT/PT PENDING. PT VERIFIES PCP ON FILE IS CORRECT, COVID VACC & BOOSTED AND PT REPORTS HER DTR HUBER IS HER HCP AND COPY REQUESTED FROM [facility], WHO WILL BE FAXING HCP TO CM OFFICE.
--- NOTE | 2023-12-19 12:09 | HO.PM.IMPN ---
Subjective Subjective Date of Service: 12/20/23 Review of Systems Follow up fall, LOC , pubic rami fx pain with movement Physical Exam Vital Signs: Vital Signs: Last Vital Signs Temp 98.2 F 12/19/23 11:43 Pulse 70 12/19/23 11:43 Resp 20 12/19/23 11:43 BP 112/58 L 12/19/23 11:43 Pulse Ox 96 12/19/23 11:43 O2 Del Method Room Air 12/19/23 11:43 BMI result Body Mass Index 28.3 Appearing in no acute distress lung sounds are clear to auscultation heart regular rate rhythm, clear S1, S2 positive bowel sounds, abdomen is soft, nontender neuro patient is alert x3, no focal deficits Objective Data Active Medications Acetaminophen (Acetaminophen 325 Mg Tablet) 650 mg PO Q6H PRN PRN Reason: Pain, Mild (Pain Scale 1-3) Last Admin: 12/19/23 09:08 Dose: 650 mg Documented By: VICKY Heparin Sodium (Porcine) (Heparin Sodium,Porcine 5,000 Unit/Ml Vial) 5,000 unit SUBCUT Q12H [facility] Last Admin: 12/19/23 09:10 Dose: 5,000 unit Documented By: VICKY Levothyroxine Sodium (Levothyroxine Sodium 75 Mcg Tablet) 75 mcg PO DAILY [facility] Last Admin: 12/19/23 09:08 Dose: 75 mcg Documented By: VICKY Morphine Sulfate (Morphine Sulfate 2 Mg/Ml Cartridge) 2 mg IVPUSH Q4H PRN; Protocol PRN Reason: Pain, Severe (Pain Scale 7-10) Last Admin: 12/19/23 01:19 Dose: 2 mg Documented By: ZARA Ondansetron HCl (Ondansetron Hcl 4 Mg/2 Ml Vial) 4 mg IVPUSH Q8H PRN PRN Reason: Nausea and Vomiting Oxycodone HCl (Oxycodone Hcl Immed Release 5 Mg Tablet) 5 mg PO Q6H PRN PRN Reason: Pain, Moderate(Pain Scale 4-6) Senna (Sennosides 8.6 Mg Tablet) 17.2 mg PO BEDTIME PRN PRN Reason: Constipation Sodium Chloride (0.9 % Sodium Chloride Flush 3 Ml Syringe) [facility] Last Admin: 12/19/23 09:08 Dose: 3 ml Documented By: VICKY Labs 12/19/23 04:29 12/19/23 04:29 Labs: Laboratory Results - last 24 hr 12/18/23 12/18/23 12/18/23 14:41 19:44 23:00 MCV 93.4 MCH 31.1 MCHC 33.3 RDW 12.0 Plt Count 213 MPV 9.5 Immature Gran % (Auto) 0.5 H Neut % (Auto) 88.2 H Lymph % (Auto) 5.6 L [place] % (Auto) 5.2 Eos % (Auto) 0.2 Baso % (Auto) 0.3 Lymph # (Auto) 0.9 L [place] # (Auto) 0.8 Eos # (Auto) 0.0 Baso # (Auto) 0.1 Abs Immat Gran (auto) 0.08 H Absolute Neuts (auto) 14.1 H Absolute Nucleated RBC 0.000 Nucleated RBC % (auto) 0.0 PT 12.9 INR 1.1 APTT 29.9 D-Dimer High Sensitivty 33762 Anion Gap 14 Estim Creat Clear Calc 42.4 Estimated GFR 57 Random Glucose 100 Calcium 9.3 Total Bilirubin 0.4 AST 26 ALT 20 Alkaline Phosphatase 60 Total Protein 7.2 Albumin 3.8 TSH 0.73 Urine Color Yellow Urine Appearance Clear Urine pH 7.5 Ur Specific [place] 1.010 Urine Protein Negative Urine Glucose (UA) Negative Urine Ketones Trace Urine Blood Negative Urine Nitrite Negative Ur Leukocyte Esterase Negative COVID-19 (AMARILYS) Negative COVID-19 Clin Com See Note Influenza Type A (MELISSA) Negative Influenza Type B (MELISSA) Negative Influenza A & B Note See Note 12/19/23 04:29 MCV 92.7 MCH 31.0 MCHC 33.4 RDW 12.3 Plt Count 192 MPV 9.8 Immature Gran % (Auto) 0.3 Neut % (Auto) 74.4 H Lymph % (Auto) 15.7 L [place] % (Auto) 8.5 Eos % (Auto) 0.7 Baso % (Auto) 0.4 Lymph # (Auto) 1.8 [place] # (Auto) 1.0 Eos # (Auto) 0.1 Baso # (Auto) 0.0 Abs Immat Gran (auto) 0.03 Absolute Neuts (auto) 8.4 H Absolute Nucleated RBC 0.000 Nucleated RBC % (auto) 0.0 PT INR APTT D-Dimer High Sensitivty Anion Gap 14 Estim Creat Clear Calc 40.3 Estimated GFR 53 Random Glucose 125 H Calcium 8.8 Total Bilirubin AST ALT Alkaline Phosphatase Total Protein Albumin TSH Urine Color Urine Appearance Urine pH Ur Specific [place] Urine Protein Urine Glucose (UA) Urine Ketones Urine Blood Urine Nitrite Ur Leukocyte Esterase COVID-19 ([facility]ARILYS) COVID-19 Clin Com Influenza Type A (MELISSA) Influenza Type B (MELISSA) Influenza A & B Note Assessment and Plan (1) Fracture of superior pubic ramus: Status: Acute Plan 83-year-old female with history of hypothyroidism admitted for syncope and left pubic ramus fracture Syncope and collapse EKG without evidence of dysrrhythmia or ischemia Head CT without acute intracranial abnormality no source of infection evident Echo normal monitor on telemetry, so far no arrythmia seen by cardiology>plan for o/p holter Neurology consult pending Fall with L pubic rami fracture ortho consult> non surgical, WBAT pain management prn PT rec acute rehab hypothryoidism synthroid dvt prophylaxis- heparin Attending Dr. Soni full code DISPO plan for dc to rehab after complete workup for syncope continue hospital stay for syncope and collapse of unclear etiology requiring close cardiac monitoring, further investigation, as well as probable placement to STR due to pubic rami fracture Quality Stroke Does the patient have a stroke diagnosis?: No VTE Prior VTE?: No VTE Risk Level:: Medical - moderate - high VTE Device Contraindication: Treatment Not Indicated VTE Drug Contraindication: N/A - Med Ordered
[2023-12-20 04:00] VITALS: BP 124/70; PULSE 83; RESP 20; TEMP 37.1; O2SAT 96
[2023-12-20 07:58] VITALS: BP 112/68; PULSE 95; RESP 20; TEMP 36.3; O2SAT 93
[2023-12-20] MEDS: Heparin Sodium,Porcine 5,000 UNIT/ML VIAL 5000 UNIT SUBCUT ×2 (08:00→21:17)
[2023-12-20] MEDS: 0.9 % Sodium Chloride Flush 3 ML SYRINGE IVFLUSH ×2 (08:00→16:14)
[2023-12-20] MEDS: Levothyroxine Sodium 75 MCG TABLET PO (08:01)
[2023-12-20] MEDS: Morphine Sulfate 2 MG/ML CARTRIDGE IVPUSH (08:01)
--- NOTE | 2023-12-20 09:35 | PM.PNCARD ---
Subjective Subjective Date of Service: 12/20/23 Interval history: She states she feels fine. No further episodes of feeling dizzy or syncopal. No palpitations or any other cardiac symptoms. Review of Systems Review of Systems Yes all other systems are reviewed and are negative Constitutional: Reports as per HPI and Reports no additional constitutional complaints Eyes: Reports as per HPI and Denies no additional eye complaints Denies system reviewed and no additional complaints, except as documented and Reports as per HPI Cardiovascular: Reports as per HPI, Reports no additional cardiovascular complaints, Denies acrocyanosis, Denies cool extremities, Denies chest pain, Denies leg edema, Denies lightheadedness, Denies palpitations and Denies dyspnea Respiratory: Reports as per HPI, Denies no additional respiratory complaints and Denies dyspnea Gastrointestinal: Reports as per HPI and Denies no additional gastrointestinal complaints Genitourinary: Reports as per HPI Musculoskeletal: Reports no additional musculoskeletal complaints and Reports as per HPI Skin/Breast: Reports system reviewed and no additional complaints, except as docu Reports system reviewed and no additional complaints, except as documented and Reports as per HPI Psychiatric: Reports no additional psychiatric complaints and Reports as per HPI Endocrine: Reports no additional endocrine complaints, Reports as per HPI and Denies palpitations Hematologic/Lymphatic: Reports no additional hematologic/lymphatic complaints and Reports as per HPI Allergic/Immunologic: Reports no additional allergic/immunologic complaints and Reports as per HPI Physical Exam Vital Signs: Last Vital Signs Temp 97.3 F 12/20/23 07:58 Pulse 95 12/20/23 07:58 Resp 20 12/20/23 07:58 BP 112/68 12/20/23 07:58 Pulse Ox 93 12/20/23 07:58 O2 Del Method Room Air 12/20/23 07:58 BMI result Body Mass Index 28.3 Const General: comfortable and no acute distress Orientation/consciousness: patient oriented x3 HEENT Other: Unremarkable Head: Yes normal to inspection Neck Neck: Yes normal visual inspection Chest Chest palpation & inspection: normal inspection of the chest Resp Auscultation: clear to auscultation bilaterally Cardio Palpation: normal PMI Heart sounds: S1 normal heart sound present, S2 normal heart sound present, no gallops, no murmurs and no rubs GI Palpation (GI): Soft to palpation Back/Spine/Pelvis Other: unremarkable Skin General skin exam: no rashes or lesions noted Neuro General: patient oriented x3 Extrem General: Yes normal to inspection Psych Mental Status: mental status grossly normal Objective Labs and Meds 12/19/23 04:29 12/19/23 04:29 Progress Note: A&P Assessment and plan (1) Syncope: Status: Acute (2) Fall: Status: Acute Plan High sensitivity troponins within range. EKG shows sinus rhythm. Telemetry without any evidence of significant bradycardia or high-grade heart block. Echocardiogram with LVEF of 60%. No wall motion abnormalities and otherwise unremarkable. Overall, no clear evidence for her fall. Not clear if it is even syncopal or from losing balance. We will arrange a 30 day monitor as an outpatient. Discussed with Connie Braun. Time Spent With Patient Time: Total time managing care of this patient today ____ minutes. Progress Note: Quality Stroke Does the patient have a stroke diagnosis?: No Procedures Date of Service Date of Service: 12/20/23
[2023-12-20 11:31] VITALS: BP 127/63; PULSE 74; RESP 20; TEMP 36.6; O2SAT 95
[2023-12-20 11:36] VITALS: BP 127/63; PULSE 74; O2SAT 95
[2023-12-20 15:08] VITALS: BP 108/62; PULSE 77; RESP 20; TEMP 37; O2SAT 95
--- NOTE | 2023-12-20 17:33 | P.CNNE_ITS ---
History of Present Illness Data of Consult Service Date: 12/20/23 Primary Care Provider: Jose Ramon Robert MD HPI This is a 83-year-old female with history of hypothyroidism who lives at home, independent at baseline presented to the ED after an unwitnessed syncopal episode. She states that she was going up the stairs and experienced a ?blackout? falling backwards. She is unsure if she lost consciousness but does not feel she hit her head. She was unable to get up and was experiencing significant pain in the left hip area. Denies history of similar episodes. She has been experiencing intermittent palpitations and non radiating left sided chest discomfort for several months lasting about 5 minutes at rest. No chest pressure, sob, no lightheadedness. She has also has urinary urgency x 2 months but no dysuria, hematuria, abd pain, n/v, flank pain. No fevers, chills, sore throat, cough. Has chronic sinus pressure/PND. She has been feeling fatigued x several days. Initial troponin 5.8. Urinalysis unremarkable. Head CT negative for any acute intracranial abnormality. Cervical spine CT negative for any acute osseous abnormality but shows degenerative changes. CT of the left pelvis shows nondisplaced fracture of the left inferior pubic ramus with minimal cortical step-off along the superior cortex of the left superior pubic ramus in the vicinity of the pubic symphysis as well as [id number] compression of the L5 body of indeterminate age but likely chronic. EKG shows normal sinus rhythm, rate 72, no ST/T-wave abnormality. Review of Systems 2 Review of Systems: Follow up fall, LOC , pubic rami fx pain with movement Yes all other systems are reviewed and are negative Constitutional: Constitutional: Reports as per HPI and Reports no additional constitutional complaints Eyes: Eyes: Reports as per HPI and Denies no additional eye complaints ENT: Denies system reviewed and no additional complaints, except as documented and Reports as per HPI Cardiovascular: Cardiovascular: Reports as per HPI, Reports no additional cardiovascular complaints, Denies acrocyanosis, Denies cool extremities, Denies chest pain, Denies leg edema, Denies lightheadedness, Denies palpitations and Denies dyspnea Respiratory: Respiratory: Reports as per HPI, Denies no additional respiratory complaints and Denies dyspnea Gastrointestinal: Gastrointestinal: Reports as per HPI and Denies no additional gastrointestinal complaints Musculoskeletal: Musculoskeletal: Reports no additional musculoskeletal complaints and Reports as per HPI Integumentary/Breasts: Skin/Breast: Reports system reviewed and no additional complaints, except as docu Neurologic: Reports system reviewed and no additional complaints, except as documented and Reports as per HPI Psychiatric: Psychiatric: Reports no additional psychiatric complaints and Reports as per HPI Endocrine: Endocrine: Reports no additional endocrine complaints, Reports as per HPI and Denies palpitations Hematologic/Lymphatic: Hematologic/Lymphatic: Reports no additional hematologic/lymphatic complaints and Reports as per HPI Allergic/Immunologic: Allergic/Immunologic: Reports no additional allergic/immunologic complaints and Reports as per HPI [facility] Past Medical History Medical History Hypothyroidism Family History Family History (Updated 12/19/23 @ 09:55 by Srinivas Presley MD) Unknown No problems noted. Pertinent family history: Patient denies any major cardiovascular issues in the family. Social History Social History Household Members: Unknown / Unable to assess Housing: House Do you presently have visiting nurse or other home services: No Patient Tobacco Use Status: Never used Tobacco Advance Directives Date on File: 12/19/23 service: No Meds Allergies Allergy/AdvReac Type Severity Reaction Status Date / Time clindamycin Allergy Unknown Verified 12/18/23 18:54 levofloxacin Allergy Unknown Verified 12/18/23 18:54 oxybutynin Allergy Unknown Verified 12/18/23 18:54 sulfamethoxazole Allergy Unknown Verified 12/18/23 18:54 Active Medications: Current Medications Acetaminophen (Acetaminophen 325 Mg Tablet) 650 mg PO Q6H PRN PRN Reason: Pain, Mild (Pain Scale 1-3) Last Admin: 12/19/23 15:03 Dose: 650 mg Heparin Sodium (Porcine) (Heparin Sodium,Porcine 5,000 Unit/Ml Vial) 5,000 unit SUBCUT Q12H AL Last Admin: 12/20/23 08:00 Dose: 5,000 unit Levothyroxine Sodium (Levothyroxine Sodium 75 Mcg Tablet) 75 mcg PO DAILY AL Last Admin: 12/20/23 08:01 Dose: 75 mcg Morphine Sulfate (Morphine Sulfate 2 Mg/Ml Cartridge) 2 mg IVPUSH Q4H PRN; Protocol PRN Reason: Pain, Severe (Pain Scale 7-10) Last Admin: 12/20/23 08:01 Dose: 2 mg Ondansetron HCl (Ondansetron Hcl 4 Mg/2 Ml Vial) 4 mg IVPUSH Q8H PRN PRN Reason: Nausea and Vomiting Oxycodone HCl (Oxycodone Hcl Immed Release 5 Mg Tablet) 5 mg PO Q6H PRN PRN Reason: Pain, Moderate(Pain Scale 4-6) Senna (Sennosides 8.6 Mg Tablet) 17.2 mg PO BEDTIME PRN PRN Reason: Constipation Sodium Chloride (0.9 % Sodium Chloride Flush 3 Ml Syringe) [facility] Last Admin: 12/20/23 16:14 Dose: 3 ml Home Medications Medication Instructions Recorded Confirmed Last Taken Type levothyroxine 75 mcg tablet 75 mcg PO DAILY@0600 12/18/23 12/19/23 12/18/23 History cholecalciferol (vitamin D3) 50 50 mcg PO DAILY 12/19/23 12/19/23 12/18/23 History mcg (2,000 unit) tablet (Vitamin D3) fexofenadine 180 mg tablet 180 mg PO DAILY 12/19/23 12/19/23 12/18/23 History fluticasone propionate 50 1 spray intranasal DAILY 12/19/23 12/19/23 12/18/23 History mcg/actuation nasal spray,suspension Physical Exam 2 Vital Signs: Vital Signs: Last Vital Signs Temp 98.6 F 12/20/23 15:08 Pulse 77 12/20/23 15:08 Resp 20 12/20/23 15:08 BP 108/62 12/20/23 15:08 Pulse Ox 95 12/20/23 15:08 O2 Del Method Room Air 12/20/23 15:08 BMI result Body Mass Index 28.3 Const: General: cooperative, healthy appearing, comfortable and no acute distress Orientation/consciousness: patient oriented x3 HEENT: Other: Unremarkable Head: Yes normal to inspection Neck: Neck: Yes normal visual inspection Chest: Chest palpation & inspection: normal inspection of the chest Resp: Effort & Inspection: normal respiratory effort and able to speak in complete sentences Auscultation: clear to auscultation bilaterally Cardio: Palpation: normal PMI Rate: regular rate Heart sounds: S1 normal heart sound present, S2 normal heart sound present, no gallops, no murmurs and no rubs Peripheral pulses: Peripheral pulses 2+ throughout GI: Palpation (GI): Soft to palpation Back/Spine/Pelvis: Other: unremarkable Skin: General skin exam: no rashes or lesions noted Lesions: no lesions Rashes: no rashes Neuro: Other: Alert and oriented Non focal exam. LE exam limited by pain from Fx. General: patient oriented x3 Extrem: Other: left lower extremity is normal to inspection. Mild pain with him flexion and extension. No pain with log roll. Sensation is intact. Pedal pulse intact. General: Yes normal to inspection Psych: Mental Status: mental status grossly normal Results Labs 12/19/23 04:29 12/19/23 04:29 Assessment and Plan (1) Syncope: Qualifiers: Syncope type: unspecified Qualified Code(s): R55 - Syncope and collapse Status: Acute Possible syncope vs loss of balance with fall. Recom. Cardiac monitoring for 7 days. EEG.Check for orthostatic hypotension CT head negative (2) Fracture of superior pubic ramus: Qualifiers: Encounter type: initial encounter Fracture type: closed Laterality: l eft Qualified Code(s): S32.512A - Fracture of superior rim of left pubis, initial encounter for closed fracture Status: Acute Plan 83-year-old female with history of hypothyroidism admitted for syncope and left pubic ramus fracture Syncope and collapse EKG without evidence of dysrrhythmia or ischemia Head CT without acute intracranial abnormality no source of infection evident Echo normal monitor on telemetry, so far no arrythmia seen by cardiology>plan for o/p holter Neurology consult pending Fall with L pubic rami fracture ortho consult> non surgical, WBAT pain management prn PT rec acute rehab hypothryoidism synthroid dvt prophylaxis- heparin Attending Dr. Soni full code DISPO plan for dc to rehab after complete workup for syncope continue hospital stay for syncope and collapse of unclear etiology requiring close cardiac monitoring, further investigation, as well as probable placement to STR due to pubic rami fracture Procedures Date of Service Date of Service: 12/20/23
[2023-12-20 19:40] VITALS: BP 127/62; PULSE 86; RESP 18; TEMP 36.8; O2SAT 94
[2023-12-21] VITALS: BP 129/72; PULSE 86; RESP 18; TEMP 36.9; O2SAT 95
--- NOTE | 2023-12-21 | EEG_ITS ---
FINDINGS: Waking background activity consists of low-voltage fast frequencies seen diffusely, intermixed with moderate voltage 8 hertz posterior alpha frequency. Recurrent episodes of sharp, transient seen from the left temporal region with phase reversal at T3. There is occasional bilateral spread of this. Photic stimulation produces marked photic driving responses with some sharp and slow discharges from the posterior quadrants. Hyperventilation was omitted. IMPRESSION: This EEG is considered abnormal due to a focus of cerebral irritability in the left mid temporal region and a photoconvulsive response. This suggests seizure focusing the left hemisphere and the tendency for its seizure disorder. Clinical correlation is suggested. MD JD Yi/KERI / [id number]
[2023-12-21 04:00] VITALS: BP 144/85; PULSE 105; RESP 18; TEMP 37.3; O2SAT 94
[2023-12-21 07:19] VITALS: BP 138/68; PULSE 78; RESP 18; TEMP 36.3; O2SAT 95
--- NOTE | 2023-12-21 08:19 | MHC.CM.PN ---
Addendum entered by Ailin Jarquin RN 12/21/23 09:14: PT WILL ALSO HAVE AN EEG, ORDER TO BE PLACED TODAY. Addendum entered by Ailin Jarquin RN 12/21/23 09:11: CM MET W/PT TO DELIVER IMM, IMM DELIVERED HOWEVER PT DECLINED TO SIGN D/T PT NOW NOT WANTING TO GO TO [facility] SHE THINKS THEY WILL PUSH HER TOO HARD AND WANT HER TO DC TOO SOON, PT REQUESTING REFERRAL TO [facility], REFERRAL SENT. Original Note: ANTIC PT WILL BE MEDICALLY CLEARED FOR ACUTE REHAB AT [facility] [place] FOR BLS TRANSPORT
[2023-12-21] MEDS: 0.9 % Sodium Chloride Flush 3 ML SYRINGE IVFLUSH ×2 (09:14→15:50)
[2023-12-21] MEDS: Heparin Sodium,Porcine 5,000 UNIT/ML VIAL 5000 UNIT SUBCUT (09:14)
[2023-12-21 12:00] VITALS: BP 112/69; PULSE 75; RESP 18; TEMP 36.3; O2SAT 95
--- NOTE | 2023-12-21 12:04 | MHC.CM.PN ---
Addendum entered by Ailin Jarquin, RN 12/21/23 13:35: IMM/ SIGNED BY PT AT BEDSIDE, [facility] FOR BLS TRANSPORT AT4:30PM Original Note: CM MET W/PT AND DTR RIZWAN TO DISCUSS PLAN [facility] REPORTED PT DID NOT HAVE A SECONDARY INSURANCE HOWEVER PT REPORTS SHE HAS , CM CONTACTED INSURANCE VERIFICATION AND THEY WERE ABLE TO LOCATE PT'S #, # GIVEN TO [facility] AND THEY ARE REQUESTING A 3:30PM TRANSFER, HOSPITALIST AWARE VIA TIGER.
--- NOTE | 2023-12-21 13:18 | PM.DS ---
DS: Providers Provider Date of Service: 12/21/23 Date of admission: 12/18/23 20:17 Date of discharge: 12/21/23 Primary care physician: Jose Ramon Robert MD Consults: 12/18/23 20:18 Consult to Orthopedics Routine Consulting Provider: [facility] Reason for consultation: L pelvis fracture 12/18/23 21:12 Consult to Cardiology Routine Consulting Provider: [facility] Reason for consultation: syncope Has provider been notified: Yes 12/20/23 07:17 Consult to Neurology Routine Consulting Provider: [facility] Reason for consultation: syncope DS: Diagnosis Discharge Diagnosis (1) Syncope: Status: Acute (2) Fracture of superior pubic ramus: Status: Acute DS: Summary Time Attestation Discharge coordination time: Greater than 30 minutes Quality: Safe Use of Opioids Does Pt have an Active Cancer Diagnosis on the Problem List?: No Quality: Stroke Does the patient have a stroke diagnosis?: No Physical Exam Vital Signs: Vital Signs: Last Vital Signs Temp 97.3 F 12/21/23 12:00 Pulse 75 12/21/23 12:00 Resp 18 12/21/23 12:00 BP 112/69 12/21/23 12:00 Pulse Ox 95 12/21/23 12:00 O2 Del Method Room Air 12/21/23 12:00 BMI result Body Mass Index 28.3 Const: Other: Awake alert oriented x3 no acute distress Resp: Other: Clear to auscultation bilaterally no rales rhonchi or wheezes Cardio: Other: No S4; positive S1-S2; no S3 murmurs rubs or gallops GI: Other: Soft nontender nondistended normoactive bowel sounds Extrem: Other: No edema bilaterally Discharge Plan Discharge Anticipated Discharge Date/Time: 12/21/23 13:17 Patient Disposition: er SNF Discharge Diagnosis: Syncope Fall Pubic rami fracture Referrals: [facility] [Outside] - 1 Day (SHORT TERM REHAB) Jose Ramon Robert MD [Primary Care Provider] - 1 Week Discharge Medications: New oxycodone 5 mg Tablet 5 mg PO Q6H PRN (Reason: Pain, Moderate(Pain Scale 4-6)) Qty: 20 0RF Rx Instructions: Partial Fill upon patient request. Continued levothyroxine 75 mcg tablet 75 mcg PO DAILY@0600 fexofenadine 180 mg Tablet 180 mg PO DAILY fluticasone propionate 50 mcg/actuation [place],Suspension 1 spray INTRANASAL DAILY Rx Instructions: administer into each nostril cholecalciferol (vitamin D3) [Vitamin D3] 50 mcg (2,000 unit) Tablet 50 mcg PO DAILY Discharge Orders: Discharge Order (Routine); Ordered 12/21/23 Ordered By: Myron Enciso Diet: Advance to usual diet Activity on Discharge: As tolerated Stand Alone Forms: Patient Portal Discharge page Care Plan Goals: Protective weight-bearing left lower extremity-TTWB with walker Health Concerns: Syncope Fall Pubic rami fracture Plan of Treatment: Follow-up with primary care provider as needed Take all medications as prescribed Assessment: See discharge summary
[2023-12-21 15:48] VITALS: BP 119/65; PULSE 93; RESP 18; TEMP 36.4; O2SAT 95
--- NOTE | 2023-12-21 17:22 | P.PNNE_ITS ---
Subjective Subjective Date of Service: 12/21/23 Interval History: No complaints Critical Care Time (minutes): 0 Physical Exam 2 Vital Signs: Vital Signs: Last Vital Signs Temp 97.5 F 12/21/23 15:48 Pulse 93 12/21/23 15:48 Resp 18 12/21/23 15:48 BP 119/65 12/21/23 15:48 Pulse Ox 95 12/21/23 15:48 O2 Del Method Room Air 12/21/23 15:48 BMI result Body Mass Index 28.3 Objective Data Labs 12/19/23 04:29 12/19/23 04:29 Progress Note: A&P Assessment and plan (1) Syncope: Status: Acute Assessment and Plan: EEG shows left temporal seizure focus. Would recommend starting Keppra 250mg bid Plan EEG shows left temporal seizure focus. Would recommend starting Keppra 250mg bid Time Spent With Patient Time: Total time managing care of this patient today ____ minutes. Procedures Date of Service Date of Service: 12/21/23 Quality Stroke Does the patient have a stroke diagnosis?: No VTE Prior VTE?: No VTE Risk Level:: Medical - moderate - high VTE Device Contraindication: Treatment Not Indicated VTE Drug Contraindication: N/A - Med Ordered
== END 2023-12-21 17:51 | disposition skilled nursing facility (03) | DRG 536 ==
LOC: HO.ED 19:49 → HO.EDOVER 20:35 → HO.IMC 12-19 07:37
PROVIDERS: Student in an Organized Health Care Education/Training Program; Admitting Provider Physician Assistant; Emergency Provider Internal Medicine; PCP Family Medicine; Visit Provider Hospitalist
DX: S32.512A Fracture of superior rim of left pubis, initial encounter for closed fracture (principal); W19.XXXA Unspecified fall, initial encounter; E03.9 Hypothyroidism, unspecified; R56.9 Unspecified convulsions; Z20.822 Contact with and (suspected) exposure to COVID-19; Z79.890 Hormone replacement therapy; Z79.51 Long term (current) use of inhaled steroids; Z79.899 Other long term (current) drug therapy
CPT/HCPCS: 36415; 70450; 71275; 72125; 72192; 73502; 80048; 80053; 81003; 84443; 84484; 85025; 85379; 85610; 85730; 87502; 87635; 93005; 93306; 95816; 97110; 97116; 97161; 99285; J1644; J2270; Q9957; Q9967

== ENCOUNTER 2023-12-18 20:17 | Outpatient (BNV) | payer MEDICARE, OTHER, SELFPAY | END 2023-12-19 07:00 | PROVIDERS: Admitting Provider Physician Assistant; Emergency Provider Internal Medicine; PCP Family Medicine; Visit Provider Internal Medicine | DX: I35.8 Other nonrheumatic aortic valve disorders (principal); I36.1 Nonrheumatic tricuspid (valve) insufficiency | CPT/HCPCS: 93306 ==

== ENCOUNTER → 2023-12-18 20:17 | Outpatient (BNV) | payer MEDICARE, OTHER, SELFPAY | PROVIDERS: Admitting Provider Physician Assistant; Emergency Provider Internal Medicine; PCP Family Medicine; Visit Provider Internal Medicine | DX: R55 Syncope and collapse (principal); W19.XXXA Unspecified fall, initial encounter; R94.31 Abnormal electrocardiogram [ECG] [EKG] | CPT/HCPCS: 93010; 99223; 99232 ==

== ENCOUNTER → 2023-12-18 20:17 | Outpatient (BNV) | payer MEDICARE, SELFPAY | PROVIDERS: Admitting Provider Physician Assistant; Emergency Provider Internal Medicine; PCP Family Medicine; Visit Provider Psychiatry & Neurology Neurology | DX: R55 Syncope and collapse (principal); S32.512A Fracture of superior rim of left pubis, initial encounter for closed fracture | CPT/HCPCS: 99222; 99231 ==

== ENCOUNTER → 2023-12-18 20:17 | Outpatient (BNV) | payer MEDICARE, OTHER, SELFPAY | PROVIDERS: Admitting Provider Physician Assistant; Emergency Provider Internal Medicine; PCP Family Medicine; Visit Provider Physician Assistant | DX: R55 Syncope and collapse (principal); S32.512A Fracture of superior rim of left pubis, initial encounter for closed fracture | CPT/HCPCS: 99223; 99232; 99239 ==

== ENCOUNTER → 2023-12-18 20:17 | Outpatient (BNV) | payer MEDICARE, OTHER, SELFPAY | PROVIDERS: Admitting Provider Physician Assistant; Emergency Provider Internal Medicine; PCP Family Medicine; Visit Provider Physician Assistant | DX: S32.592A Other specified fracture of left pubis, initial encounter for closed fracture (principal); S32.512A Fracture of superior rim of left pubis, initial encounter for closed fracture | CPT/HCPCS: 99221 ==

== ENCOUNTER 2024-01-06 08:43 | Outpatient (REF) | payer MEDICARE, OTHER, SELFPAY ==
--- NOTE | ~2024-01-06 | XR_ITS ---
EXAMINATION: XR PELVIS CLINICAL INFORMATION: Pain in unspecified hip. CT pelvis of 12/18/2023 demonstrated a nondisplaced fracture of the left inferior pubic ramus and minimal cortical step-off along the superior cortex of the left superior pubic ramus in the vicinity of the pubic symphysis. Also demonstrated is compression of L5 body. COMPARISON: 12/18/2023 pelvis and left hip radiographs. CT pelvis 12/18/2023. TECHNIQUE: AP view of the pelvis. FINDINGS: The bones are diffusely demineralized. Degenerative changes in the imaged lower lumbar spine. Degenerative changes in the bilateral sacroiliac joints. Redemonstration of compression deformity of L5 vertebral body. Visualization limited due to diffuse demineralization as well as overlying bowel. Nondisplaced fracture of the left inferior pubic ramus and minimal cortical step-off along the superior cortex of the left superior pubic ramus in the region of the pubic symphysis were better visualized and characterized on the CT scan. Degenerative changes in the bilateral hips. XR/XR pelvis 1-2V IMPRESSION: 1. Nondisplaced fracture of the left inferior pubic ramus and minimal cortical step-off along the superior cortex of the left superior pubic ramus in the region of the pubic symphysis were better visualized and characterized on the CT scan. 2. Redemonstration of compression deformity of L5 vertebral body. 3. Visualization limited due to diffuse demineralization as well as overlying bowel.
== END 2024-01-06 08:44 | disposition home or self-care (01) ==
LOC: HO.HOSX 08:43
PROVIDERS: Visit Provider Physician Assistant
DX: M25.552 Pain in left hip (principal); S32.512A Fracture of superior rim of left pubis, initial encounter for closed fracture; S32.592A Other specified fracture of left pubis, initial encounter for closed fracture; W10.9XXA Fall (on) (from) unspecified stairs and steps, initial encounter; Y93.01 Activity, walking, marching and hiking; Y92.9 Unspecified place or not applicable; Y99.9 Unspecified external cause status
CPT/HCPCS: 72170; 99212

== ENCOUNTER 2024-01-06 12:39 | Outpatient (AMB) | payer MEDICARE, OTHER, SELFPAY ==
--- NOTE | 2024-01-06 12:49 | A.OFFVIS_ITS ---
Intake Intake Visit Reasons: ov-pubic rami fracture, DOI 12/18/23 Intake Note: Flower an 83 year old female presents today for an ER follow up of pubic rami fracture, DOI 12/18/23. Patient reports that she fell down 2 stairs, [place] [facility] [place]. Currently she is feeling a bit sore when she is sitting down. Allergies clindamycin Allergy (Verified 01/06/24 12:58) Unknown levofloxacin Allergy (Verified 01/06/24 12:58) Unknown oxybutynin Allergy (Verified 01/06/24 12:58) Unknown sulfamethoxazole Allergy (Verified 01/06/24 12:58) Unknown HPI ov-pubic rami fracture, DOI 12/18/23 HPI Details 83-year-old female who presents in the [facility] today for an evaluation of a pelvic fracture, which occurred on 12/18/2023. I last saw the patient in the hospital on 12/19/2023 status post a syncopal episode when she was going up stairs. A CT of the pelvis as well as X-rays of the left hip and pelvis were obtained in the ED which revealed left superior and inferior pubic rami fractures. The patient was admitted to the medical service for further workout of the syncopal episode with orthopedic consult in regards to the pelvic fractures. She was instructed she may toe touch weight bear with the walker. While in the office today the patient reports she fell down 2 stairs. She states she is currently sore when she is sitting down. Patient presents in the office today in a wheelchair. [facility] Medical History Hypothyroidism Family History (Updated 12/19/23 @ 09:55 by Srinivas Presley MD) Unknown No problems noted. Social History Household Members: Unknown / Unable to assess Housing: House Do you presently have visiting nurse or other home services: No Patient Tobacco Use Status: Never used Tobacco Advance Directives Date on File: 12/19/23 service: No Review of Systems Const All systems reviewed & are unremarkable except as noted in HPI and below Physical Exam Const General: cooperative, healthy appearing and no acute distress Resp Effort & Inspection: normal respiratory effort and able to speak in complete sentences Cardio Rate: regular rate Peripheral pulses: Peripheral pulses 2+ throughout GI Palpation (GI): Soft to palpation Skin Lesions: no lesions Rashes: no rashes Extrem Other: Left lower extremity: Able to move the left lower extremity in all planes. Able to perform internal and external rotation and straight leg raise with mild pain. NVI. Office Procedures Fracture Care Fracture Billing Code: Fracture Billing Code Assessment & Plan Assessment & Plan (1) Fracture of left superior pubic ramus: Code(s): S32.512A - Fracture of superior rim of left pubis, initial encounter for closed fracture (2) Fracture of left inferior pubic ramus: Code(s): S32.592A - Other specified fracture of left pubis, initial encounter for closed fracture Plan Ms. Montoya is an 83-year-old female who presents in the office today for an evaluation of a pelvic fracture, which occurred on 12/18/2023. I last saw the patient in the hospital on 12/19/2023 status post a syncopal episode when she was going up stairs. A CT of the pelvis as well as X-rays of the left hip and pelvis were obtained in the ED which revealed left superior and inferior pubic rami fractures. The patient was admitted to the medical service for further workout of the syncopal episode with orthopedic consult in regards to the pelvic fractures. She was instructed she may toe touch weight bear with the walker. While in the office today the patient reports she fell down 2 stairs. She states she is currently sore when she is sitting down. Patient presents in the office today in a wheelchair. The patient will remain toe touch weight bearing for 3 weeks. She will then progress to 50% weight bearing for an additional 2 weeks with a walker. At the end of this time she will weight bear with full weight as tolerated as she returns to normal activities. She will be referred to work with physical therapy to work on glute, core, quad strengthening, as well as gate training. Follow up will be in 4 weeks with repeat x-rays, or sooner if needed. X-rays of the pelvis which were obtained while in the office today and were reviewed by me, Karla Stevenson PA-C, redemonstrated an inferior and superior pubic rami fracture. Orders: Orders XR pelvis 1-2V Today M25.559 - Pain in unspecified hip Patient Instructions: Scribed by Marley Lamb medical device sales consultant, for Karla Graham SHETH on 01/06/2024 at 12:40 pm, EST. Coding Level of Care Code Est Pt Level 4 (53506) Diagnoses Fracture of left superior pubic ramus S32.512A Fracture of left inferior pubic ramus S32.592A CPT Codes Fracture Care - Fracture Billing Code: Fracture Billing Code ([id number])
== END 2024-01-06 13:14 | disposition home or self-care (01) ==
PROVIDERS: PCP Family Medicine; Visit Provider Physician Assistant
DX: S32.512A Fracture of superior rim of left pubis, initial encounter for closed fracture (principal); S32.592A Other specified fracture of left pubis, initial encounter for closed fracture
CPT/HCPCS: 99213

== ENCOUNTER 2024-01-10 13:58 | Outpatient (AMB) | payer MEDICARE, OTHER, SELFPAY ==
[2024-01-10 14:12] VITALS: BP 112/60; PULSE 67
--- NOTE | 2024-01-10 14:12 | MHC.OFFVIS ---
Intake Vital Signs 01/10/24 14:12 Height 5 ft 3 in BP 112/60 Blood Pressure Location Lt brachial Position Sitting Pulse 67 [place] [facility] [place] Int[place] Note: Follow up Adult And Pediatric Neurologist Required: No Accompanied by: Daughter Allergies clindamycin Allergy (Verified 01/06/24 12:58) Unknown levofloxacin Allergy (Verified 01/06/24 12:58) Unknown oxybutynin Allergy (Verified 01/06/24 12:58) Unknown sulfamethoxazole Allergy (Verified 01/06/24 12:58) Unknown Medication List - Last Reconciled 01/10/24 by Pallavi Castaneda NP cholecalciferol (vitamin D3) (Vitamin D3) 50 mcg PO DAILY fexofenadine 180 mg PO DAILY fluticasone propionate 50 mcg/actuation 1 spray intranasal DAILY levetiracetam (Keppra) 250 mg PO Q12H levothyroxine 75 mcg PO DAILY@0600 oxycodone 5 mg PO Q6H PRN HPI HPI Comments History of Present Illness Details 83-year-old female presents today for a hospital discharge follow-up. She reports she has been doign well. She is currently in rehab. She was seen for an unepxlained fall. She had a postive EEG. She has not gotten her RENEE performed yet. She reports she has been eating and drinking better and denies any chest pains, shortness of breath, brain fog, or syncope. Though she is not ambulating due to a fracture of the left and right pubic ramus. [facility] Medical History Hypothyroidism Family History Unknown No problems noted. Social History Household Members: Unknown / Unable to assess Housing: House Do you presently have visiting nurse or other home services: No Patient Tobacco Use Status: Never used Tobacco Advance Directives Date on File: 12/19/23 service: No Review of Systems Const Denies weakness ENT Denies dizziness Card Denies chest pain, Denies chest pain with activity, Denies syncope, Denies rapid heart rate, Denies pedal edema, Denies edema, Denies leg edema, Denies lightheadedness, Denies palpitations, Denies dyspnea, Denies dyspnea on exertion and Denies orthopnea Resp Denies cough, Denies dyspnea and Denies dyspnea on exertion GI Denies hematochezia and Denies change in stool character Musc Denies abnormal gait, Denies muscle cramps, Denies muscle weakness, Denies numbness, Denies radiating pain into limb and Denies tingling Neuro Denies abnormal gait, Denies dizziness, Denies syncope, Denies numbness, Denies tingling and Denies weakness Endo Denies palpitations Physical Exam Vital Signs: Last Vital Signs Pulse 67 01/10/24 14:12 BP 112/60 01/10/24 14:12 Const General: healthy appearing and no acute distress Orientation/consciousness: patient oriented x3 Limitations: wheelchair (fx pubis ramis) HEENT Head: Yes normal to inspection Eyes General: appearance normal, both eyes and all related structures Neck Neck: Yes normal visual inspection Chest Chest palpation & inspection: normal inspection of the chest Resp Effort & Inspection: normal respiratory effort Auscultation: clear to auscultation bilaterally Cardio Jugular venous distension: no JVD Palpation: normal PMI Rate: regular rate Rhythm: regular rhythm Heart sounds: S1 normal heart sound present, S2 normal heart sound present, no click, no gallops, no murmurs and no rubs GI Inspection: Yes normal to inspection Palpation (GI): Soft to palpation Skin General skin exam: no rashes or lesions noted Neuro General: patient oriented x3 Extrem General: Yes normal to inspection Psych Appearance: grossly normal Assessment & Plan Assessment & Plan (1) Syncope: Code(s): R55 - Syncope and collapse Qualifiers: Syncope type: unspecified Qualified Code(s): R55 - Syncope and collapse Plan Patient has not had any reoccurring syncopal episodes. She was found to have a positive EEG. Has not had monitor yet. She will schedule that soon and follow-up after that. ED care for symptoms or syncopal episodes. Continue to eat and drink well. Coding Level of Care Code Est Pt Level 3 (99491) Diagnoses Syncope, unspecified syncope type R55 Syncope type: unspecified
== END 2024-01-10 14:48 | disposition home or self-care (01) ==
PROVIDERS: PCP Family Medicine; Visit Provider Nurse Practitioner
DX: R55 Syncope and collapse (principal)
CPT/HCPCS: 99213

== ENCOUNTER → 2024-01-10 13:58 | Outpatient (BNVA) | payer MEDICARE, OTHER, SELFPAY | PROVIDERS: PCP Family Medicine; Visit Provider Nurse Practitioner | DX: R55 Syncope and collapse (principal) | CPT/HCPCS: 99212 ==

== ENCOUNTER → 2024-01-16 10:33 | Outpatient (REF) | payer MEDICARE, OTHER, SELFPAY ==
--- NOTE | 2024-01-16 10:37 | HM_ITS ---
Conclusion: 1. Patient was monitored for total period of 6 days and 23 hours 2. Baseline was normal sinus with average heart of 73 beats per minute 3. Occasional PACs noted without significant tachyarrhythmias 4. No significant pauses noted 5. No patient reported events MTDD
== END ==
LOC: HO.CARD 10:33
PROVIDERS: PCP Family Medicine; Visit Provider Internal Medicine
DX: R55 Syncope and collapse (principal); Z91.81 History of falling
CPT/HCPCS: 93242

== ENCOUNTER → 2024-01-16 10:37 | Outpatient (BNV) | payer MEDICARE, OTHER, SELFPAY | PROVIDERS: PCP Family Medicine; Visit Provider Internal Medicine Cardiovascular Disease | DX: I49.1 Atrial premature depolarization (principal) | CPT/HCPCS: 93244 ==

== ENCOUNTER 2024-02-02 09:33 | Outpatient (REF) | payer MEDICARE, OTHER, SELFPAY ==
--- NOTE | ~2024-02-02 | XR_ITS ---
EXAMINATION: XR PELVIS CLINICAL INFORMATION: Pain in unspecified hip. CT pelvis of 12/18/2023 demonstrated a nondisplaced fracture of the left inferior pubic ramus and minimal cortical step-off along the superior cortex of the left superior pubic ramus in the vicinity of the pubic symphysis. Also demonstrated is compression of L5 body. COMPARISON: 01/11/2024 and 12/18/[address] radiographs[address] 12/18/2023 CT scan pelvis. TECHNIQUE: AP view of the pelvis. FINDINGS: Bones are diffusely demineralized. Degenerative changes in the imaged lower lumbar spine. Degenerative changes in the bilateral sacroiliac joints. Redemonstration of a compression deformity of the L5 vertebral body. A nondisplaced fracture of the left inferior pubic ramus was better demonstrated on CT pelvis of 12/18/2023. Minimal cortical step-off along the superior cortex of the left superior pubic ramus in the vicinity pubic symphysis identified on CT scan of 12/18/2023 redemonstrated. Degenerative changes in bilateral hips. XR/XR pelvis 1-2V IMPRESSION: A nondisplaced fracture of the left inferior pubic ramus and minimal cortical step-off along the superior cortex of the left superior pubic ramus in the region of the pubic symphysis were better visualized and characterized on CT scan of 12/18/2023.
== END 2024-02-02 09:34 | disposition home or self-care (01) ==
LOC: HO.HOSX 09:33
PROVIDERS: Visit Provider Physician Assistant
DX: M25.552 Pain in left hip (principal); S32.592D Other specified fracture of left pubis, subsequent encounter for fracture with routine healing; S32.512D Fracture of superior rim of left pubis, subsequent encounter for fracture with routine healing; W01.0XXD Fall on same level from slipping, tripping and stumbling without subsequent striking against object, subsequent encounter; Y93.01 Activity, walking, marching and hiking; Y92.9 Unspecified place or not applicable; Y99.9 Unspecified external cause status
CPT/HCPCS: 72170; 99212

== ENCOUNTER 2024-02-02 13:45 | Outpatient (AMB) | payer MEDICARE, OTHER, SELFPAY ==
--- NOTE | 2024-02-02 14:08 | A.OFFVIS_ITS ---
Intake Intake Visit Reasons: OV-left sup./ inf. pubic rami fx, DOI 12/18/23 Intake Note: Flower is a 83 year old female presents today for follow up of left sup./ inf. pubic rami fx, DOI 12/18/23. Patient reports having discomfort when she is sitting for too long. She states that she is noticing that she is doing better, and she is walking a little bit better too. Allergies clindamycin Allergy (Verified 02/02/24 14:12) Unknown levofloxacin Allergy (Verified 02/02/24 14:12) Unknown oxybutynin Allergy (Verified 02/02/24 14:12) Unknown sulfamethoxazole Allergy (Verified 02/02/24 14:12) Unknown HPI OV-left sup./ inf. pubic rami fx, DOI 12/18/23 HPI Details 83-year-old female who presents in the [facility] today for a follow up of left superior and inferior pubic ramus fracture, which occurred on 12/18/2023 status post a syncopal episode when she was going up stairs. I last saw the patient in the office on 01/06/2024 at which time she was instructed she would remain toe touch weight bearing for 3 weeks. She would then progress to 50% weight bearing for an additional 2 weeks with a walker. At the end of that time she will weight bear with full weight as tolerated as she returns to normal activities. She was referred to work with physical therapy to work on glute, core, quad strengthening, as well as gate training. While in the office today the patient reports having discomfort when she is sitting for long periods of time. She does feel overall that she is doing better and states she is walking a little bit better too. [facility] Medical History Hypothyroidism Family History Unknown No problems noted. Social History Household Members: Unknown / Unable to assess Housing: House Do you presently have visiting nurse or other home services: No Patient Tobacco Use Status: Never used Tobacco Advance Directives Date on File: 12/19/23 service: No Review of Systems Const All systems reviewed & are unremarkable except as noted in HPI and below Physical Exam Const General: cooperative, healthy appearing and no acute distress Resp Effort & Inspection: normal respiratory effort and able to speak in complete sentences Cardio Rate: regular rate Peripheral pulses: Peripheral pulses 2+ throughout GI Palpation (GI): Soft to palpation Skin Lesions: no lesions Rashes: no rashes Extrem Other: Left lower extremity: Able to move the left lower extremity in all planes. Able to perform internal and external rotation and straight leg raise with no pain. NVI. Assessment & Plan Assessment & Plan (1) Fracture of left superior pubic ramus: Code(s): S32.512A - Fracture of superior rim of left pubis, initial encounter for closed fracture Qualifiers: Encounter type: subsequent encounter Fracture healing: with routine healing Fracture type: closed Qualified Code(s): S32.512D - Fracture of superior rim of left pubis, subsequent encounter for fracture with routine healing (2) Fracture of left inferior pubic ramus: Code(s): S32.592A - Other specified fracture of left pubis, initial encounter for closed fracture Qualifiers: Encounter type: subsequent encounter Fracture healing: with routine healing Fracture type: closed Qualified Code(s): S32.592D - Other specified fracture of left pubis, subsequent encounter for fracture with routine healing Plan Ms. Montoya is an 83-year-old female who presents in the office today for a follow up of left superior and inferior pubic ramus fracture, which occurred on 12/18/2023 status post a syncopal episode when she was going up stairs. I last saw the patient in the office on 01/06/2024 at which time she was instructed she would remain toe touch weight bearing for 3 weeks. She would then progress to 50% weight bearing for an additional 2 weeks with a walker. At the end of that time she will weight bear with full weight as tolerated as she returns to normal activities. She was referred to work with physical therapy to work on glute, core, quad strengthening, as well as gate training. While in the office today the patient reports having discomfort when she is sitting for long periods of time. She does feel overall that she is doing better and states she is walking a little bit better too. Patient is able to use the walker as needed when ambulating for long distances. She reports no pain or difficulties when ambulating at this time. She may continue to work with physical therapy if she finds this to be beneficial. She is currently at [facility] with a plan to be discharged next week. I did recommend that she should have physical therapy come to her home and assist her with navigating stairs, at least for one to two sessions, and after that she can discontinue attending. Follow up will be PRN, or sooner if needed. X-rays of the pelvis which were obtained while in the office today and were reviewed by me, Karla Stevenson PA-C, revealed routine healing of left superior and inferior pubic ramus fractures. Orders: Orders XR pelvis 1-2V Today M25.559 - Pain in unspecified hip Patient Instructions: Scribed by Marley Lamb, medical office secretary, for Karla Stevenson PA-C on 02/02/2024 at 1:50 pm, EST. Coding Level of Care Code Global (45671) Diagnoses Closed fracture of superior ramus of left pubis with routine healing, subsequent encounter S32.512D Encounter type: subsequent encounter Fracture healing: with routine healing Fracture type: closed Closed fracture of left inferior pubic ramus with routine healing, subsequent encounter S32.592D Encounter type: subsequent encounter Fracture healing: with routine healing Fracture type: closed
== END 2024-02-02 15:37 | disposition home or self-care (01) ==
PROVIDERS: PCP Family Medicine; Visit Provider Physician Assistant
DX: S32.512D Fracture of superior rim of left pubis, subsequent encounter for fracture with routine healing (principal); S32.592D Other specified fracture of left pubis, subsequent encounter for fracture with routine healing
CPT/HCPCS: 99213

== ENCOUNTER 2024-02-29 10:07 | Outpatient (REF) | payer MEDICARE, OTHER, SELFPAY | END 2024-02-29 10:08 | disposition home or self-care (01) | LOC: HO.HOSX 10:07 | PROVIDERS: PCP Family Medicine; Visit Provider Physician Assistant | DX: M53.3 Sacrococcygeal disorders, not elsewhere classified (principal) | CPT/HCPCS: 99212 ==

== ENCOUNTER 2024-02-29 10:07 | Outpatient (AMB) | payer MEDICARE, OTHER, SELFPAY ==
--- NOTE | 2024-02-29 10:13 | A.OFFVIS_ITS ---
Intake Intake Visit Reasons: Newprob-Right hip pain/numbness Intake Note: Flower is a 83 year old female who presents today for a evaluation of her right hip pain. No hx of injury. Patient reports ongoing pain for a week. She expresses that after PT her right hip is in a lot of pain and she feels like its getting worse. Patient reveals that her pain starts with her lower back and it goes to her right hip. Pain is worse when she is laying down and through out the day. Allergies clindamycin Allergy (Verified 02/29/24 10:17) Unknown levofloxacin Allergy (Verified 02/29/24 10:17) Unknown oxybutynin Allergy (Verified 02/29/24 10:17) Unknown sulfamethoxazole Allergy (Verified 02/29/24 10:17) Unknown HPI Newprob-Right hip pain/numbness HPI Details 83-year-old female who presents in the [facility] today for an evaluation of right SI joint pain that began on 02/20/2024 when ambulating around the [place]. While in the office today the patient reports the pain began the day after she was pushing a heavy shopping cart. She does not recall any known injury. Reports after PT her hip is having increased pain and she feels this is getting worse. She states the pain begins in her lower back and radiates to her hip. Pain increases when laying down and throughout the day. [facility] Medical History Hypothyroidism Family History Unknown No problems noted. Social History Household Members: Unknown / Unable to assess Housing: House Do you presently have visiting nurse or other home services: No Patient Tobacco Use Status: Never used Tobacco Advance Directives Date on File: 12/19/23 service: No Review of Systems Const All systems reviewed & are unremarkable except as noted in HPI and below Physical Exam Const General: cooperative and no acute distress Orientation/consciousness: patient oriented x3 Resp Effort & Inspection: normal respiratory effort and able to speak in complete sentences Cardio Peripheral pulses: Peripheral pulses 2+ throughout Skin General skin exam: no rashes or lesions noted Neuro General: patient oriented x3 Extrem Other: Right hip: Tenderness to palpation over the SI joint. Full hip ROM in all planes. No groin pain with ROM. Assessment & Plan Assessment & Plan (1) Sacroiliac joint pain: Code(s): M53.3 - Sacrococcygeal disorders, not elsewhere classified Plan Ms. Montoya is a 83-year-old female who presents in the office today for an evaluation of right SI joint pain that began on 02/20/2024 when ambulating around the [place]. While in the office today the patient reports the pain began the day after she was pushing a heavy shopping cart. She does not recall any known injury. Reports after PT her hip is having increased pain and she feels this is getting worse. She states the pain begins in her lower back and radiates to her hip. Pain increases when laying down and throughout the day. A referral was placed for the patient to be further evaluate and treated by Physiatry. In the meantime, she can reach out to her PCP for any additional options available to her for treatment of her pain. Follow-up will be PRN, or sooner if needed. Patient Instructions: Scribed by Marley Lamb medical authorization specialist, for Karla Stevenson PA-C on 02/29/2024 at 10:09 am, EST. Coding Level of Care Code Est Pt Level 3 (38007) Diagnoses Sacroiliac joint pain M53.3
== END 2024-02-29 10:27 | disposition home or self-care (01) ==
PROVIDERS: PCP Family Medicine; Visit Provider Physician Assistant
DX: M53.3 Sacrococcygeal disorders, not elsewhere classified (principal)
CPT/HCPCS: 99213